=== PATIENT | male | born 1940 | race Hispanic/Latino ===

== ENCOUNTER 2017-10-16 21:28 | Emergency (ER) | payer OTHER ==
[2017-10-16] MEDS ORDERED: ATROVENT IH ONE (21:35)
[2017-10-16] MEDS ORDERED: PROVENTIL IH ONE (21:35)
--- NOTE | 2017-10-16 22:15 | XRay Report ---
FINAL REPORT PROCEDURE: XR CHEST 1V AP TECHNIQUE: Chest radiograph anteroposterior view. CPT 16346 HISTORY: Asthma COMPARISON: No prior studies are available for comparison. FINDINGS: Heart: Mild cardiomegaly is noted. Mediastinum/Vessels: Normal. Lungs/Pleural space: There is diffuse prominence of interstitial markings. Pulmonary venous congestion is noted. Pleural spaces are clear. Subsegmental atelectatic changes are noted in the left lung base.. Bony thorax: No acute osseous abnormality. Life support devices: None. IMPRESSION: Findings are most consistent with CHF. Subsegmental atelectatic changes left lung base. Any underlying infiltrates cannot be excluded..
[2017-10-16 22:30] LABS: Albumin 3.3 g/dL (3.9-5); Calcium 7.9 mg/dL (8.4-10.2)
--- NOTE | 2017-10-16 22:30 | Emergency Department Report ---
ED Shortness of Breath HPI - General Chief Complaint: Dyspnea/Respdistress Stated Complaint: DIFFICULTY IN BREATHING Time Seen by Provider: 10/16/17 21:35 Source: patient, family, EMS Mode of arrival: Stretcher Limitations: No Limitations - History of Present Illness Initial Comments: Mr. Barclay is a 77-year-old male with history of COPD CHF diabetes hypertension and coronary artery disease. He was recently evaluated by [facility]. Also has new chronic kidney disease. He declined aggressive medical measures recently. He signed DO NOT RESUSCITATE form. Declined CABG which was recommended. Patient had severe shortness breath over the last 5 days. Worse today. He denies any pain. He does not want to be on a ventilator. His did corroborate this information. Due to severe respiratory distress, placed on CPAP by EMS. Also given IV Solu- Medrol, IV magnesium, IV furosemide and albuterol nebulizer therapy Complaint: shortness of breath -: Gradual, days(s) (5) Severity: severe Improves With: nothing Known History Of: COPD, congestive heart failure Context: recent illness (recent hospitalization) Associated Symptoms: denies other symptoms - Related Data Allergies Allergy/AdvReac Type Severity Reaction Status Date / Time No Known Allergies Allergy Unverified 10/16/17 21:44 ED Review of Systems ROS: Stated complaint: DIFFICULTY IN BREATHING Other details as noted in HPI Comment: Unobtainable due to pts medical conditions (severe respiratory distress) ED Past Medical Hx - Past Medical History Previous Medical History?: Yes Hx Hypertension: Yes Hx Congestive Heart Failure: Yes Hx Diabetes: Yes Hx COPD: Yes Hx Dementia: Yes - Surgical History Past Surgical History?: No - Social History Smoking Status: Current Every Day Smoker Substance Use Type: Alcohol ED Physical Exam - General Limitations: No Limitations General appearance: alert, in distress, other (severe work of breathing only able to speak one to two word sentences) - Head Head exam: Present: atraumatic, normocephalic - Eye Eye exam: Present: normal appearance, PERRL - ENT ENT exam: Present: mucous membranes moist - Neck Neck exam: Present: normal inspection. Absent: tenderness, meningismus - Respiratory Respiratory exam: Present: respiratory distress, wheezes, accessory muscle use, decreased breath sounds, prolonged expiratory - Cardiovascular Cardiovascular Exam: Present: regular rate, normal rhythm, bradycardia, tachycardia, normal heart sounds - GI/Abdominal GI/Abdominal exam: Present: soft. Absent: distended, tenderness, guarding, rebound - Extremities Exam Extremities exam: Present: pedal edema - Neurological Exam Neurological exam: Present: alert, oriented X3 - Psychiatric Psychiatric exam: Present: normal affect, normal mood - Skin Skin exam: Present: warm, dry, intact ED Course Vital Signs 10/16/17 10/16/17 21:35 21:53 Temperature 98.5 F Pulse Rate 100 H Respiratory 20 20 Rate Blood Pressure 191/90 O2 Sat by Pulse 100 100 Oximetry ED Medical Decision Making - Lab Data Result diagrams: 10/16/17 22:01 10/16/17 22:01 - EKG Data 10/16/17 22:32 EKG obtained 2210 Sinus tachycardia rate of 100 bpm normal axis prolonged QT interval no ST elevation or signs of ischemia - Medical Decision Making Mr. Barclay is a 77-year-old male presents with acute respiratory distress requiring BiPAP. ABG did not reveal any hypercapnia or significant hypoxia. It did show mild metabolic acidosis. He has a history of congestive heart failure and chronic kidney disease no known history of COPD. His was able to give further history. His furosemide dose was as high as 80 mg twice a day. The dose was then decreased to 40 mg twice a day. Now he is only taking furosemide 20 mg once a day. has been watching his weight. She has not noticed any no weight gain. She explained that patient is highly functioning. However he does have a history of dementia. Mr. Barclay was able to get a full history. He denies any symptoms at this time. He is quite intelligent and insightful. I do suspect that he may have mild memory loss. I Explained the diagnosis of acute congestive heart failure. I offered admission to the hospital. He received IV furosemide per EMS. He does not require any oxygen. His pulse ox is 97% on room air which is normal. His respiratory rate is 16 breaths per minute. Resting heart rate 97 bpm laying at 30 almost supin. Mr. Barclay's was to tell me that his GFR is 26. His creatinine is 2.7 according to . His kidney function is at baseline. She also explained that he recently left AGAINST MEDICAL ADVICE from [facility] during most recent hospitalization. He desires to be discharged. He is stable for discharge at this time. I have asked the to increase his Lasix dosing to 40 mg twice a day until he sees his physician. agrees to take the patient home. Critical Care Time: Yes Critical care time in (mins) excluding proc time.: 45 Critical care attestation.: If time is entered above; I have spent that time in minutes in the direct care of this critically ill patient, excluding procedure time. He came to the bedside immediately. Discussed BiPAP therapy were respiratory therapist. I obtain history from . I reviewed electronic medical record. Also took history from EMS. Patient required BiPAP and noninvasive pressure ventilation immediately upon arrival. I reviewed end of life forms which were recently signed in August. ED Disposition Clinical Impression: Acute exacerbation of CHF (congestive heart failure) Disposition: TO HOME OR SELFCARE Is pt being admited?: No Does the pt Need Aspirin: No Condition: Stable Instructions: Heart Failure (ED), Pulmonary Edema (ED) Additional Instructions: Please increase your Lasix dose to 40 mg twice a day. Referrals: PRIMARY CARE, [Primary Care Provider] - 3-5 Days Time of Disposition: 00:26
[2017-10-16 22:44] LABS: Chol/HDL Ratio 7.07 %
[2017-10-16 23:02] LABS: Hematocrit 30.8 % (35.5-45.6); Hemoglobin 9.7 gm/dl (11.8-15.2); Mean Corpuscular Volume 82 fl (84-94); Red Blood Count 3.77 M/mm3 (3.65-5.03)
[2017-10-16 23:03] LABS: Basophils % (Auto) 0.3 % (0.0-1.8); Eosinophils # (Auto) 0.1 K/mm3 (0.0-0.4); Eosinophils % (Auto) 0.7 % (0.0-4.3); Lymphocytes # (Auto) 0.8 K/mm3 (1.2-5.4); Lymphocytes % (Auto) 10.5 % (13.4-35.0); Mean Corpuscular HGB Conc 31 % (32-34); Mean Corpuscular Hemoglobin 26 pg (28-32); Monocytes # (Auto) 0.3 K/mm3 (0.0-0.8); Monocytes % (Auto) 4.1 % (0.0-7.3); Platelet Count 165 K/mm3 (140-440); Red Cell Distribution Width 18.8 % (13.2-15.2)
[2017-10-17 01:34] VITALS: BP 177/81
== END 2017-10-17 01:00 | disposition home or self-care (01) ==
LOC: ED 21:28
DX: I11.0 Hypertensive heart disease with heart failure (principal); I50.9 Heart failure, unspecified; E11.9 Type 2 diabetes mellitus without complications; J44.9 Chronic obstructive pulmonary disease, unspecified; F03.90 Unspecified dementia, unspecified severity, without behavioral disturbance, psychotic disturbance, mood disturbance, and anxiety; F17.200 Nicotine dependence, unspecified, uncomplicated
CPT/HCPCS: 36415; 71045; 80053; 80061; 82803; 84484; 85025; 87040; 93005; 93010; 99291

== ENCOUNTER 2018-11-04 10:36 | Inpatient (IN) | payer OTHER, MEDICARE ==
--- NOTE | 2018-11-04 11:00 | Cat Scan Report ---
CT HEAD WITHOUT CONTRAST: HISTORY: Stroke. TECHNIQUE: Sequential 2.5mm CT images. COMPARISON: none. FINDINGS: Cerebral Parenchyma: Mild diffuse cortical volume loss and mild chronic ischemic changes in the white matter are identified. No large area of acute ischemia as a procedure done noncontrast CT. Cerebellum: Within normal limits. Brainstem: 5 mm chronic lacunar infarct in the left maida. Ventricles: Normal. Sella: Normal. Extra-axial spaces: Normal. Basal Cisterns: Normal. Intracranial Hemorrhage: None. Midline Shift: None. Calvarium: Normal. Sinuses: Mild mucosal thickening is noted in the inferior left maxillary sinus. The remaining sinuses are well-aerated. Mastoid Air Cells: Normal. Visualized Orbits: Normal. IMPRESSION: No acute intracranial process is identified. Volume loss. Chronic white matter changes. Chronic lacunar infarct in the left maida. These findings were discussed with Dr. Nieto in the emergency Department at 1053 hrs.
--- NOTE | 2018-11-04 11:06 | Emergency Department Report ---
ED Neuro Deficit HPI - General Chief Complaint: Neuro Symptoms/Deficit Stated Complaint: AMS Time Seen by Provider: 11/04/18 10:46 Source: patient, family, EMS Mode of arrival: Stretcher Limitations: Altered Mental Status - History of Present Illness Initial Comments: [facility] Date of Service: 11/04/18 Impression: Encephalopathy: no focal weakness seen on exam. He is not answering questions or following commands. Concern more for metabolic encephalopathy but possibly a s troke with aphasia - - - Not a tpa candidate due to: no focal weakness and does not want significant interventions therefore would not consider tpa without a clear stroke syndrome which he does not have Presentation is not suggestive of Large Vessel Occlusive Disease. Thrombectomy would not be recommended. He would not want an intervention per so no stat imaging. Comments: ELI: 8:30 Door time: 10:36 [employer] contacted: 10:46 [employer] at bedside:10:51 NIHSS assessment time: 10:55 Recommendations: -Metabolic work up per primaty team -ASA -Permissive htn up to 220/120 -Check Hgb A1c and lipid panel -dysphagia screen -Telemetry -Glucose control per primary team, avoid hypo- and hyperglycemia -DVT prophylaxis -PT/OT/Speech Inpatient neurology consultation Inpatient stroke evaluation as per Neurology/ Internal Medicine Discussed with ED MD Please call with questions Estrella Sarha, DO [employer] --------- CC altered mental status History of Present Illness 78 yo M with history of CKD and stroke who is presenting with altered mental status. Patient last spoke to his at 8:30 and at that time had been vomiting which isn't unsual for him. He did not take any of his medications and then seemed more altered so she brought him in. She felt like something was wrong all morning. He is comfort measures essentially and does not want interventions to keep him alive per but wouldn't want to be debilitated further. Diagnostic: CT head: no acute process Exam: NIHSS score: 14 1A: Level of Consciousness - Arouses to minor stimulation +1 1B: Ask Month and Age - 0 Questions Right +2 1C: 'Blink Eyes' & 'Squeeze Hands' - Performs 0 Tasks +2 2: Test Horizontal Extraocular Movements - Normal 0 3: Test Visual Mcpherson - No Visual Loss 0 4: Test Facial Palsy - Normal symmetry 0 5A: Test Left Arm Motor Drift - Drift, but doesn't hit bed +1 5B: Test Right Arm Motor Drift - Drift, but doesn't hit bed +1 6A: Test Left Leg Motor Drift - Drift, but doesn't hit bed +1 6B: Test Right Leg Motor Drift -Drift, but doesn't hit bed +1 7: Test Limb Ataxia - No Ataxia 0 8: Test Sensation - Normal; No sensory loss 0 9: Test Language/Aphasia - venetie/Global Aphasia: No Usable Speech/Auditory Comprehensionute/Global Aphasia: No Usable Speech/Auditory Comprehension +3 10: Test Dysarthria - Mute/Anarthric +2 11: Test Extinction/Inattention - No abnormality 0 Medical Decision Making: - Extensive number of diagnosis or management options are considered above. - Extensive amount of complex data reviewed. - High risk of complication and/or morbidity or mortality are associated with differential diagnostic considerations above. - There may be Uncertain outcome and increased probability of prolonged functional impairment or high probability of severe prolonged functional impairment associated with some of these differential diagnosis. Medical Data Reviewed: 1.Data reviewed include clinical labs, radiology, Medical Tests; 2.Tests results discussed w/performing or interpreting physician; 3.Obtaining/reviewing old medical records; 4.Obtaining case history from another source; 5.Independent review of image, tracing or specimen. Patient was informed the Neurology Consult would happen via TeleHealth consult by way of interactive audio and video telecommunications and consented to receiving care in this manner. - Related Data Allergies/Adverse Reactions: Allergies Allergy/AdvReac Type Severity Reaction Status Date / Time No Known Allergies Allergy Unverified 10/16/17 21:44 ED Review of Systems ROS: Stated complaint: AMS Other details as noted in HPI ED Past Medical Hx - Past Medical History Previous Medical History?: Yes Hx Hypertension: Yes Hx Congestive Heart Failure: Yes Hx Diabetes: Yes Hx Renal Disease: Yes Hx Psychiatric Treatment: Yes Hx COPD: Yes Hx Dementia: Yes Additional medical history: dementia. general weakness. depression. liver function. mood disorder - Social History Smoking Status: Current Every Day Smoker Substance Use Type: Alcohol ED Neuro Physical Exam - General Limitations: Altered Mental Status Suspected Stroke: No - Lab Data Lab Results 11/04/18 Range/Units 10:51 POC Glucose 369 H (70-105) Critical care attestation.: If time is entered above; I have spent that time in minutes in the direct care of this critically ill patient, excluding procedure time. ED Disposition Clinical Impression: Encephalopathy acute Disposition: DC-09 OP ADMIT IP TO THIS HOSP Is pt being admited?: Yes Condition: Stable Referrals: PRIMARY CARE, [Primary Care Provider] - 3-5 Days
--- NOTE | 2018-11-04 11:07 | Emergency Department Report ---
HPI - General Time Seen by Provider: 11/04/18 10:46 - HPI HPI: 78-year-old -[place] male presents to the emergency department, with his , via EMS with complaint of some altered mental status that started around 845 this morning. The patient has a past medical history of CVA, diabetes, TIA, COPD, CHF, hypertension and coronary artery disease. He has been seen here in the past and has refused certain workups including being sent for bypass surgery. He has signed a DO NOT RESUSCITATE in the past and has current paperwork that reiterates this. The says that she noticed around 945 that he was having difficulty speaking. Also she usually is able to assist him in walking around and bleeding is ADLs but at this point he had increased weakness and she was unable to do so. EMS said that he was able to stand and bear weight with some assistance. He did not receive anything for his symptoms prior to arrival. Even though there are no complaints of any obvious lateralizing or focal deficits other than the decreased speech or difficulty with speech, there is a clear time that the patient's says was a last known well time, and therefore we initiated a code stroke. ED Past Medical Hx - Past Medical History Previous Medical History?: Yes Hx Hypertension: Yes Hx Congestive Heart Failure: Yes Hx Diabetes: Yes Hx Renal Disease: Yes Hx Psychiatric Treatment: Yes Hx COPD: Yes Hx Dementia: Yes Additional medical history: dementia. general weakness. depression. liver function. mood disorder - Social History Smoking Status: Current Every Day Smoker Substance Use Type: Alcohol - Medications Home Medications: Home Medications Medication Instructions Recorded Confirmed Last Taken Type Divalproex Dr [Rafael BROUSSARD] 250 mg PO BID 11/04/18 11/04/18 Unknown History Insulin Glargine,Hum.rec.anlog 20 unit SQ QAM 11/04/18 11/04/18 Unknown History [Lantus Solostar] Ondansetron [Zofran Odt] 4 mg PO Q8HR 11/04/18 11/04/18 Unknown History Sertraline [Zoloft] 100 mg PO QDAY 11/04/18 11/04/18 Unknown History ED Review of Systems ROS: Stated complaint: AMS Other details as noted in HPI Comment: Unobtainable due to pts medical conditions Physical Exam - Physical Exam Physical Exam: GENERAL: Patient is ill-appearing. HENT: Normocephalic. Atraumatic. Patient has moist mucous membranes. EYES: Extraocular motions are intact. Pupils equal reactive to light bilaterally. NECK: Supple. Trachea is midline. CHEST/LUNGS: Clear to auscultation. There is no respiratory distress noted. HEART/CARDIOVASCULAR: Regular. There is no tachycardia. There is no murmur. ABDOMEN: Abdomen is soft, nontender. Patient has normal bowel sounds. There is no abdominal distention. SKIN: Skin is warm and dry. NEURO: The patient is awake but is nonverbal. He will follow some commands but often needs multiple prompts. Withdraws from painful stimuli. MUSCULOSKELETAL: There is no tenderness or deformity. There is no limitation range of motion. There is no evidence of acute injury. ED Course - Consultations Consultation #1: 11/04/18 11:23 As soon as the decision was made to call a code stroke, the telemedicine neurologist was contacted, Dr. Sanford. She evaluated the patient and thinks it is more consistent with some metabolic encephalopathy and does not recommend TPA at this time. Consultation #2: Just prior to the patient being transferred to the telemetry floor, I found out the patient has [employer]. I spoke with Dr. Manuel who has agreed to allow the patient to be [facility]. 11/04/18 19:56 ED Medical Decision Making - Lab Data Result diagrams: 11/04/18 11:04 11/04/18 11:04 - EKG Data -: EKG Interpreted by Me EKG shows normal: sinus rhythm (PVCs), axis, intervals, QRS complexes, ST-T waves Rate: normal - EKG Data When compared to previous EKG there are: previous EKG unavailable Interpretation: normal EKG (with PVCs) - Radiology Data Radiology results: report reviewed CT HEAD WITHOUT CONTRAST: HISTORY: Stroke. TECHNIQUE: Sequential 2.5mm CT images. COMPARISON: none. FINDINGS: Cerebral Parenchyma: Mild diffuse cortical volume loss and mild chronic ischemic changes in the white matter are identified. No large area of acute ischemia as a procedure done noncontrast CT. Cerebellum: Within normal limits. Brainstem: 5 mm chronic lacunar infarct in the left maida. Ventricles: Normal. Sella: Normal. Extra-axial spaces: Normal. Basal Cisterns: Normal. Intracranial Hemorrhage: None. Midline Shift: None. Calvarium: Normal. Sinuses: Mild mucosal thickening is noted in the inferior left maxillary sinus. The remaining sinuses are well-aerated. Mastoid Air Cells: Normal. Visualized Orbits: Normal. IMPRESSION: No acute intracranial process is identified. Volume loss. Chronic white matter changes. Chronic lacunar infarct in the left maida. These findings were discussed with Dr. Nieto in the emergency Department at 1053 hrs. Transcribed By: TTR Dictated By: DERECK ENGLISH JR, MD Electronically Authenticated By: DERECK ENGLISH JR, MD Signed Date/Time: 11/04/18 1055 - Medical Decision Making This patient presents to the emergency department for evaluation of altered mental status. As it was an acute change within a TPA window, a code stroke was called. The patient was seen by the telemedicine neurologist who agrees that the patient does not appear to be a TPA candidate as it is more likely to be secondary to a metabolic encephalopathy but there is still the potential for CVA with acute aphasia. However the patient has made his wishes clear previously to his that he does not want any significant interventions and that he is a DO NOT RESUSCITATE. Patient's labs show hyperglycemia with a blood sugar of about 400. While he has a mild elevation in his anion gap, there is no venous acidosis and he appears lower suspicion for being in diabetic ketoacidosis. He also has some occasional chronic renal insufficiency/failure and mild hyperkalemia with potassium of 5.3. The patient presents with extremely elevated blood pressure. He was given some IV insulin and IV antihypertensive medications. The blood sugar has started to come down and the blood pressure has greatly improved. The patient will be admitted to the hospital for further evaluation and treatment and was accepted for admission by the hospitalist, Dr. Sheikh. - Differential Diagnosis CVA, TIA, metabolic encephalopathy, DKA, HHNK Critical Care Time: Yes Critical care time in (mins) excluding proc time.: 35 Critical care attestation.: If time is entered above; I have spent that time in minutes in the direct care of this critically ill patient, excluding procedure time. Critical care time was spent on this patient and during his initial evaluation, multiple re- evaluations, ordering an interpretation of labs and imaging, discussion with the telemedicine neurologist, multiple discussions with the patient's . Critical Care Time: 35 minutes ED Disposition Clinical Impression: Encephalopathy acute, Hypertensive urgency, Uncontrolled diabetes mellitus, Acute on chronic renal failure Disposition: DC-09 OP ADMIT IP TO THIS HOSP Is pt being admited?: Yes Condition: Serious - Assessment Assessment Interval: Baseline - Level of Consciousness 1a. Level of Consciousness: alert/keenly responsive - LOC Questions 1b. LOC Questions: aphasic - LOC Command 1c. LOC Commands: performs tasks correctly - Best Gaze 2. Best Gaze: normal - Visual 3. Visual: no visual loss - Facial Palsy 4. Facial Palsy: normal symmetrical movement - Motor Arm 5a. Motor Arm Left: no drift 5b. Motor Arm Right: no drift - Motor Leg 6a. Motor Leg Left: no drift 6b. Motor Leg Right: no drift - Limb Ataxia 7. Limb Ataxia: absent - Sensory 8. Sensory: normal - Best Language 9. Best Language: mute/global aphasia - Dysarthria 10. Dysarthria: mute/anarrthric - Extinction and Inattention 11. Extinction/Inattention: no abnormality - Scoring Total Score: 7 Stroke Severity: Moderate Stroke
[2018-11-04 11:23] LABS: Basophils % (Auto) 0.3 % (0.0-1.8); Hematocrit 35.1 % (35.5-45.6); Hemoglobin 11.7 gm/dl (11.8-15.2); Lymphocytes # (Auto) 0.5 K/mm3 (1.2-5.4); Lymphocytes % (Auto) 8.5 % (13.4-35.0); Mean Corpuscular HGB Conc 33 % (32-34); Mean Corpuscular Volume 87 fl (84-94); Monocytes # (Auto) 0.3 K/mm3 (0.0-0.8); Monocytes % (Auto) 4.3 % (0.0-7.3); Platelet Count 151 K/mm3 (140-440); Red Blood Count 4.06 M/mm3 (3.65-5.03); Red Cell Distribution Width 16.5 % (13.2-15.2)
[2018-11-04 11:33] LABS: INR 1.1 (0.87-1.13)
[2018-11-04 11:34] LABS: Partial Thromboplastin Time 25.9 Sec. (24.2-36.6)
[2018-11-04 11:41] LABS: Calcium 9.1 mg/dL (8.4-10.2)
[2018-11-04 11:45] LABS: Alanine Aminotransferase 10 units/L (7-56)
[2018-11-04 11:48] LABS: Bilirubin,Direct < 0.2 mg/dL (0-0.2)
[2018-11-04] MEDS ORDERED: NORMODYNE IV ONE (11:59)
[2018-11-04] MEDS ORDERED: HumuLIN R IV ONE (11:59)
[2018-11-04 12:01] LABS: Chol/HDL Ratio 7.75 %
--- NOTE | 2018-11-04 12:44 | History and Physical Report ---
History of Present Illness Chief complaint: He is weak and cant talk History of present illness: 78 YO Male with HTN, CHF, CVA, DM, COPD, Dementia, Debility, Nicotine Dependence presents to ED for evaluation. Pt is confused and unable to provide detailed history. Pt history provided by his who is at bedside during exam and interview. As per , the patient was in his usual state of health around bedtime around 2030hrs. Upon waking from sleep around 0945 hrs and was found to have difficulty speaking, as well as generalized weakness and unable to stand independently. EMS notified and upon arrival the patient was found to be in distress. Pt transported to [facility]. Pt seen and evaluated in ED and a code stroke was called. Teleneurology consulted and the patient was deemed not to be a candidate for TPA. Pt admitted to telemetry and initiated on CVA protocol. Neurology consulted in ED. No prior admission for review. No medication listed for reconciliation at time of admission. Past History Past Medical History: COPD, diabetes, heart failure, hypertension, stroke, other (Dementia, Nicotine Dependence) Past Surgical History: No surgical history, Other (reviewed) Social history: , lives with family, smoking Family history: hypertension Medications and Allergies Allergies Allergy/AdvReac Type Severity Reaction Status Date / Time No Known Allergies Allergy Unverified 10/16/17 21:44 Home Medications Medication Instructions Recorded Confirmed Last Taken Type Divalproex Dr [Rafael BROUSSARD] 250 mg PO BID 11/04/18 11/04/18 Unknown History Insulin Glargine,Hum.rec.anlog 20 unit SQ QAM 11/04/18 11/04/18 Unknown History [Lantus Solostar] Ondansetron [Zofran Odt] 4 mg PO Q8HR 11/04/18 11/04/18 Unknown History Sertraline [Zoloft] 100 mg PO QDAY 11/04/18 11/04/18 Unknown History Review of Systems ROS unobtainable: due to mental status Exam - Constitutional General appearance: Present: mild distress - EENT Eyes: Present: PERRL ENT: hearing intact, clear oral mucosa - Neck Neck: Present: supple, normal ROM - Respiratory Respiratory effort: normal Respiratory: bilateral: CTA - Cardiovascular Heart Sounds: Present: S1 & S2. Absent: rub, click - Extremities Extremities: pulses symmetrical, No edema Peripheral Pulses: within normal limits - Abdominal General gastrointestinal: Present: soft, non-tender, non-distended, normal bowel sounds Male genitourinary: Present: normal - Integumentary Integumentary: Present: clear, dry, clammy - Musculoskeletal Musculoskeletal: generalized weakness - Psychiatric Psychiatric: no appropriate mood/affect, no intact judgment & insight, no memory intact - Neurologic Neurologic: CNII-XII intact, moves all extremities, no gait normal Results - Labs CBC & Chem 7: 11/04/18 11:04 11/04/18 11:04 Labs: Abnormal lab results 11/04/18 11/04/18 11/04/18 Range/Units 10:51 11:04 11:04 Hgb 11.7 L (11.8-15.2) gm/dl Hct 35.1 L (35.5-45.6) % RDW 16.5 H (13.2-15.2) % Lymph % (Auto) 8.5 L (13.4-35.0) % Lymph # 0.5 L (1.2-5.4) K/mm3 Seg Neutrophils % 86.9 H (40.0-70.0) % Sodium 135 L (137-145) mmol/L Potassium 5.3 H (3.6-5.0) mmol/L Chloride 97.5 L (98-107) mmol/L Carbon Dioxide 20 L (22-30) mmol/L BUN 62 H (9-20) mg/dL Creatinine 3.1 H (0.8-1.5) mg/dL Glucose 404 H (75-100) mg/dL POC Glucose 369 H (70-105) Troponin T 0.125 H* (0.00-0.029) ng/mL Triglycerides 314 H (2-149) mg/dL Cholesterol 225 H (50-199) mg/dL LDL Cholesterol Direct 148 H (50-130) mg/dL HDL Cholesterol 29 L (40-59) mg/dL Assessment and Plan - Patient Problems (1) CVA (cerebral vascular accident) Current Visit: Yes Status: Acute Qualifiers: Precerebral and cerebral artery: middle cerebral artery Laterality of affected vessel: left Plan to address problem: CVA Protocol: Admit to telemetry, CT Brain, MRI Brain, MRA Brain, Teleneurology consulted, Echo, Carotid doppler, Antiplatelet therapy, lipid panel, statin therapy, Neurology consulted, PT/OT/Speech therapy (2) Nicotine dependence Current Visit: Yes Status: Acute Qualifiers: Nicotine product type: cigarettes Plan to address problem: Smoking cessation counseling, supportive care. (3) COPD (chronic obstructive pulmonary disease) Current Visit: Yes Status: Acute Qualifiers: Chronic bronchitis type: mixed simple and mucopurulent Plan to address problem: Supplemental oxygen, nebulizer therapy, NIPPV as clinically indicated, (4) Diabetes Current Visit: Yes Status: Acute Plan to address problem: ADA diet, insulin sliding scale, accu check (5) HTN (hypertension) Current Visit: Yes Status: Acute Qualifiers: Hypertension type: essential hypertension Qualified Code(s): I10 - Essential (primary) hypertension Plan to address problem: Permissive hypertension overnight, monitor BP q shift, (6) Encephalopathy acute Current Visit: Yes Status: Acute Plan to address problem: CT Head, neuro checks, supportive care. (7) Debility Current Visit: Yes Status: Acute Plan to address problem: PT consulted, CAse management consulted for D/C Planning/SNF Placement (8) ARF (acute renal failure) with tubular necrosis Current Visit: Yes Status: Acute Plan to address problem: IVF resuscitation therapy, nephrology consulted, urine electrolytes, renal ultrasound (9) DVT prophylaxis Current Visit: Yes Status: Acute Plan to address problem: SCD to BLE while in bed, prophylactic heparin
[2018-11-04 12:53] LABS: Bilirubin,Urine NEG (Negative); Blood,Urine SM (Negative); Color,Urine Straw (Yellow); RBC,Urine < 1.0 /HPF (0.0-6.0); Urobilinogen,Urine < 2.0 mg/dL (<2.0); WBC,Urine < 1.0 /HPF (0.0-6.0)
[2018-11-04] MEDS ORDERED: PHENERGAN PR PRN (15:13)
[2018-11-04] MEDS ORDERED: ZOFRAN IV PRN (15:13)
[2018-11-04] MEDS ORDERED: TYLENOL PO PRN (15:13)
[2018-11-04] MEDS ORDERED: DULCOLAX PR PRN (15:13)
[2018-11-04] MEDS ORDERED: PROVENTIL IH PRN (15:13)
[2018-11-04] MEDS ORDERED: MILK OF MAGNESIA PO PRN (15:13)
[2018-11-04] MEDS ORDERED: REGLAN PO PRN (15:13)
--- NOTE | 2018-11-04 17:08 | Vascular Lab Report ---
PROCEDURE: VL CAROTID DUPLEX BILAT TECHNIQUE: Duplex Doppler ultrasound examination of the cervical arteries bilaterally. Note: Measurement of carotid stenosis is based on flow velocity values that correlate with the [place] Symptomatic Carotid Endarterectomy Trial (NASCET) based stenosis criteria using the internal carotid artery diameter as the denominator for stenosis calculation. HISTORY: stroke . Acute encephalopathy. Altered mental status COMPARISONS: None FINDINGS: Intimal thickening is noted bilaterally throughout the carotid artery system but no significant plaqu e or calcification is demonstrated. Peak systolic CCA and ICA velocities are within normal limits bilaterally corresponding to estimated diameter stenosis of 0 to 49 %. ICA/CCA peak systolic ratios are within normal limits. Right ratio: 1.24 Left ratio: 0.77 Flow is antegrade in both vertebral arteries. No evidence of aneurysm or occlusion. IMPRESSION: Bilateral carotid artery minimal atherosclerotic change. No hemodynamically significant stenosis (<50% diameter) based on ratios, velocities, and color Dopple r images. This document is electronically signed by Walker Vides MD., Nov 04 2018 06:06:07 PM ET
--- NOTE | 2018-11-04 17:41 | Consultation ---
Medications and Allergies Allergies Allergy/AdvReac Type Severity Reaction Status Date / Time No Known Allergies Allergy Unverified 10/16/17 21:44 Home Medications Medication Instructions Recorded Confirmed Last Taken Type Divalproex Dr [Rafael DR] 250 mg PO BID 11/04/18 11/04/18 Unknown History Insulin Glargine,Hum.rec.anlog 20 unit SQ QAM 11/04/18 11/04/18 Unknown History [Lantus Solostar] Ondansetron [Zofran Odt] 4 mg PO Q8HR 11/04/18 11/04/18 Unknown History Sertraline [Zoloft] 100 mg PO QDAY 11/04/18 11/04/18 Unknown History Active Meds: Active Medications Acetaminophen (Tylenol) 650 mg PO Q4H PRN PRN Reason: Pain, Mild (1-3) Albuterol (Proventil) 2.5 mg IH Q3HRT PRN PRN Reason: Shortness Of Breath Aspirin (Aspirin) 325 mg PO QDAY [place] Bisacodyl (Dulcolax) 10 mg [place] QDAY PRN PRN Reason: Constipation Divalproex Sodium (Depakote Dr) 250 mg PO BID [place] Insulin Glargine (Lantus) 20 units SUB-Q QHS [place] Magnesium Hydroxide (Milk Of Magnesia) 30 ml PO Q4H PRN PRN Reason: Constipation Metoclopramide HCl (Reglan) 10 mg PO Q6H PRN PRN Reason: Nausea And Vomiting Ondansetron HCl (Zofran) 4 mg IV Q8H PRN PRN Reason: Nausea And Vomiting Ondansetron HCl (Zofran Odt) 4 mg PO Q8HR PRE[place] Promethazine HCl (Phenergan) 25 mg [place] Q6H PRN PRN Reason: Nausea And Vomiting Sertraline HCl (Zoloft) 100 mg PO QDAY [place] Sodium Chloride (Sodium Chloride Flush Syringe 10 Ml) 10 ml IV PRN PRN PRN Reason: LINE FLUSH Physical Examination - Vital Signs Vital Signs: Vital Signs Resp 22 11/04/18 11:45 Results - Laboratory Findings CBC and BMP: 11/04/18 11:04 11/04/18 11:04 Abnormal Lab Findings: Abnormal Labs 11/04/18 11/04/18 11/04/18 10:51 11:04 11:04 Hgb 11.7 L Hct 35.1 L RDW 16.5 H Lymph % (Auto) 8.5 L Lymph # 0.5 L Seg Neutrophils % 86.9 H Sodium 135 L Potassium 5.3 H Chloride 97.5 L Carbon Dioxide 20 L BUN 62 H Creatinine 3.1 H Glucose 404 H POC Glucose 369 H Troponin T 0.125 H* Triglycerides 314 H Cholesterol 225 H LDL Cholesterol Direct 148 H HDL Cholesterol 29 L 11/04/18 13:11 Hgb Hct RDW Lymph % (Auto) Lymph # Seg Neutrophils % Sodium Potassium Chloride Carbon Dioxide BUN Creatinine Glucose POC Glucose 350 H Troponin T Triglycerides Cholesterol LDL Cholesterol Direct HDL Cholesterol
--- NOTE | 2018-11-04 18:28 | Consultation ---
Medications and Allergies Allergies Allergy/AdvReac Type Severity Reaction Status Date / Time No Known Allergies Allergy Unverified 10/16/17 21:44 Home Medications Medication Instructions Recorded Confirmed Last Taken Type Divalproex Dr [Rafael DR] 250 mg PO BID 11/04/18 11/04/18 Unknown History Insulin Glargine,Hum.rec.anlog 20 unit SQ QAM 11/04/18 11/04/18 Unknown History [Lantus Solostar] Ondansetron [Zofran Odt] 4 mg PO Q8HR 11/04/18 11/04/18 Unknown History Sertraline [Zoloft] 100 mg PO QDAY 11/04/18 11/04/18 Unknown History Active Meds: Active Medications Acetaminophen (Tylenol) 650 mg PO Q4H PRN PRN Reason: Pain, Mild (1-3) Albuterol (Proventil) 2.5 mg IH Q3HRT PRN PRN Reason: Shortness Of Breath Aspirin (Aspirin) 325 mg PO QDAY [place] Bisacodyl (Dulcolax) 10 mg [place] QDAY PRN PRN Reason: Constipation Divalproex Sodium (Depakote Dr) 250 mg PO BID [place] Insulin Glargine (Lantus) 20 units SUB-Q QHS [place] Magnesium Hydroxide (Milk Of Magnesia) 30 ml PO Q4H PRN PRN Reason: Constipation Metoclopramide HCl (Reglan) 10 mg PO Q6H PRN PRN Reason: Nausea And Vomiting Ondansetron HCl (Zofran) 4 mg IV Q8H PRN PRN Reason: Nausea And Vomiting Ondansetron HCl (Zofran Odt) 4 mg PO Q8HR [place] Promethazine HCl (Phenergan) 25 mg DC Q6H PRN PRN Reason: Nausea And Vomiting Sertraline HCl (Zoloft) 100 mg PO QDAY [place] Sodium Chloride (Sodium Chloride Flush Syringe 10 Ml) 10 ml IV PRN PRN PRN Reason: LINE FLUSH Physical Examination - Vital Signs Vital Signs: Vital Signs Resp 22 11/04/18 11:45 Results - Laboratory Findings CBC and BMP: 11/04/18 11:04 11/04/18 11:04 Abnormal Lab Findings: Abnormal Labs 11/04/18 11/04/18 11/04/18 10:51 11:04 11:04 Hgb 11.7 L Hct 35.1 L RDW 16.5 H Lymph % (Auto) 8.5 L Lymph # 0.5 L Seg Neutrophils % 86.9 H Sodium 135 L Potassium 5.3 H Chloride 97.5 L Carbon Dioxide 20 L BUN 62 H Creatinine 3.1 H Glucose 404 H POC Glucose 369 H Troponin T 0.125 H* Triglycerides 314 H Cholesterol 225 H LDL Cholesterol Direct 148 H HDL Cholesterol 29 L 11/04/18 11/04/18 13:11 17:58 Hgb Hct RDW Lymph % (Auto) Lymph # Seg Neutrophils % Sodium Potassium Chloride Carbon Dioxide BUN Creatinine Glucose POC Glucose 350 H 190 H Troponin T Triglycerides Cholesterol LDL Cholesterol Direct HDL Cholesterol Assessment and Plan Mr. Schaefer is a 78-year-old gentleman with history of stroke in the past, diabetes, TIA, COPD, CHF, hypertension and coronary artery disease who also has advanced renal disease for which dialysis was recommended in the past which he refused. Patient was found confused sitting on the bed and urinated on himself this morning, it was noticed by the . states that patient urinated on himself 3 times this morning in a period of 2 hours and when he urinated on himself for the third time he was found confused and he would look to her but did not make eye contact and look was vacant.. He did not answer questions,and that scared the and she called the ambulance..After he came to the emergency department he had some abnormal lab in that his potassium was elevated, creatinine 3.1 and BUN was 62. Patient did not have any past history of seizures. Physical examination. Patient is drowsy but answers questions and his answers are appropriate. He knows the president, he knows who he is and where he is, he identified me is a doctor and he could not recognize his , he stated that she was his nurse. Heart. Normal rate and rhythm. Carotid. Both palpable, no bruit. Cranial nerves. All cranial nerves are within normal limits.Pupils are reactive to light and accommodation,no facial asymmetry. Motor. Normal strength in all 4 extremities, there is no asymmetry of strength. Reflexes: There were generalized hyporeflexia and plantar responses are downgoing. Sensation and coordination are grossly within normal limits. Impression : patient most likely had an episode of simple partial seizure, he has seizure risk factor as he had stroke in the past. Patient's confusion could be from metabolic encephalopathy as well as from post ictal state. Recommendation. Patient should be started on Keppra 500 mg by mouth twice a day. #2 Patient BUN of 60 to be addressed with adequate fluid and patient should be counseled again about the benefit of dialysis.
--- NOTE | 2018-11-04 18:29 | Consultation ---
Medications and Allergies Allergies Allergy/AdvReac Type Severity Reaction Status Date / Time No Known Allergies Allergy Unverified 10/16/17 21:44 Home Medications Medication Instructions Recorded Confirmed Last Taken Type Divalproex Dr [ChantellTE DR] 250 mg PO BID 11/04/18 11/04/18 Unknown History Insulin Glargine,Hum.rec.anlog 20 unit SQ QAM 11/04/18 11/04/18 Unknown History [Lantus Solostar] Ondansetron [Zofran Odt] 4 mg PO Q8HR 11/04/18 11/04/18 Unknown History Sertraline [Zoloft] 100 mg PO QDAY 11/04/18 11/04/18 Unknown History Active Meds: Active Medications Acetaminophen (Tylenol) 650 mg PO Q4H PRN PRN Reason: Pain, Mild (1-3) Albuterol (Proventil) 2.5 mg IH Q3HRT PRN PRN Reason: Shortness Of Breath Aspirin (Aspirin) 325 mg PO QDAY [place] Bisacodyl (Dulcolax) 10 mg [place] QDAY PRN PRN Reason: Constipation Divalproex Sodium (Depakote Dr) 250 mg PO BID [place] Insulin Glargine (Lantus) 20 units SUB-Q QHS [place] Magnesium Hydroxide (Milk Of Magnesia) 30 ml PO Q4H PRN PRN Reason: Constipation Metoclopramide HCl (Reglan) 10 mg PO Q6H PRN PRN Reason: Nausea And Vomiting Ondansetron HCl (Zofran) 4 mg IV Q8H PRN PRN Reason: Nausea And Vomiting Ondansetron HCl (Zofran Odt) 4 mg PO Q8HR [place] Promethazine HCl (Phenergan) 25 mg [place] Q6H PRN PRN Reason: Nausea And Vomiting Sertraline HCl (Zoloft) 100 mg PO QDAY [place] Sodium Chloride (Sodium Chloride Flush Syringe 10 Ml) 10 ml IV PRN PRN PRN Reason: LINE FLUSH Physical Examination - Vital Signs Vital Signs: Vital Signs Resp 22 11/04/18 11:45 Results - Laboratory Findings CBC and BMP: 11/07/18 04:18 11/07/18 04:18 Abnormal Lab Findings: Abnormal Labs 11/04/18 11/04/18 11/04/18 10:51 11:04 11:04 Hgb 11.7 L Hct 35.1 L RDW 16.5 H Lymph % (Auto) 8.5 L Lymph # 0.5 L Seg Neutrophils % 86.9 H Sodium 135 L Potassium 5.3 H Chloride 97.5 L Carbon Dioxide 20 L BUN 62 H Creatinine 3.1 H Glucose 404 H POC Glucose 369 H Troponin T 0.125 H* Triglycerides 314 H Cholesterol 225 H LDL Cholesterol Direct 148 H HDL Cholesterol 29 L 11/04/18 11/04/18 13:11 17:58 Hgb Hct RDW Lymph % (Auto) Lymph # Seg Neutrophils % Sodium Potassium Chloride Carbon Dioxide BUN Creatinine Glucose POC Glucose 350 H 190 H Troponin T Triglycerides Cholesterol LDL Cholesterol Direct HDL Cholesterol
--- NOTE | 2018-11-04 18:51 | Consultation ---
Medications and Allergies Allergies Allergy/AdvReac Type Severity Reaction Status Date / Time No Known Allergies Allergy Unverified 10/16/17 21:44 Home Medications Medication Instructions Recorded Confirmed Last Taken Type Divalproex Dr [Rafael DR] 250 mg PO BID 11/04/18 11/04/18 Unknown History Insulin Glargine,Hum.rec.anlog 20 unit SQ QAM 11/04/18 11/04/18 Unknown History [Lantus Solostar] Ondansetron [Zofran Odt] 4 mg PO Q8HR 11/04/18 11/04/18 Unknown History Sertraline [Zoloft] 100 mg PO QDAY 11/04/18 11/04/18 Unknown History Active Meds: Active Medications Acetaminophen (Tylenol) 650 mg PO Q4H PRN PRN Reason: Pain, Mild (1-3) Albuterol (Proventil) 2.5 mg IH Q3HRT PRN PRN Reason: Shortness Of Breath Aspirin (Aspirin) 325 mg PO QDAY [place] Bisacodyl (Dulcolax) 10 mg [place] QDAY PRN PRN Reason: Constipation Divalproex Sodium (Depakote Dr) 250 mg PO BID [place] Insulin Glargine (Lantus) 20 units SUB-Q QHS [place] Magnesium Hydroxide (Milk Of Magnesia) 30 ml PO Q4H PRN PRN Reason: Constipation Metoclopramide HCl (Reglan) 10 mg PO Q6H PRN PRN Reason: Nausea And Vomiting Ondansetron HCl (Zofran) 4 mg IV Q8H PRN PRN Reason: Nausea And Vomiting Ondansetron HCl (Zofran Odt) 4 mg PO Q8HR [place] Promethazine HCl (Phenergan) 25 mg [place] Q6H PRN PRN Reason: Nausea And Vomiting Sertraline HCl (Zoloft) 100 mg PO QDAY PRESTON Sodium Chloride (Sodium Chloride Flush Syringe 10 Ml) 10 ml IV PRN PRN PRN Reason: LINE FLUSH Physical Examination - Vital Signs Vital Signs: Vital Signs Resp 22 11/04/18 11:45 Results - Laboratory Findings CBC and BMP: 11/04/18 11:04 11/04/18 11:04 Abnormal Lab Findings: Abnormal Labs 11/04/18 11/04/18 11/04/18 10:51 11:04 11:04 Hgb 11.7 L Hct 35.1 L RDW 16.5 H Lymph % (Auto) 8.5 L Lymph # 0.5 L Seg Neutrophils % 86.9 H Sodium 135 L Potassium 5.3 H Chloride 97.5 L Carbon Dioxide 20 L BUN 62 H Creatinine 3.1 H Glucose 404 H POC Glucose 369 H Troponin T 0.125 H* Triglycerides 314 H Cholesterol 225 H LDL Cholesterol Direct 148 H HDL Cholesterol 29 L 11/04/18 11/04/18 13:11 17:58 Hgb Hct RDW Lymph % (Auto) Lymph # Seg Neutrophils % Sodium Potassium Chloride Carbon Dioxide BUN Creatinine Glucose POC Glucose 350 H 190 H Troponin T Triglycerides Cholesterol LDL Cholesterol Direct HDL Cholesterol
[2018-11-04] MEDS: LANTUS SUB-Q SCH (22:18)
[2018-11-04] MEDS: HEPARIN SUB-Q SCH (22:18)
[2018-11-04] MEDS: ZOFRAN ODT PO SCH (22:20)
[2018-11-05] MEDS: ZOFRAN ODT PO SCH ×3 (07:07→22:30)
[2018-11-05] MEDS: SODIUM CHLORIDE FLUSH SYRINGE 10 ML IV PRN (09:25)
[2018-11-05] MEDS: HEPARIN SUB-Q SCH (09:26)
[2018-11-05] MEDS: ZOLOFT PO SCH (09:26)
[2018-11-05] MEDS: ASPIRIN PO SCH (09:26)
--- NOTE | 2018-11-05 09:40 | Progress Note ---
Assessment and Plan 78 YO Male with HTN, CHF, CVA, DM, COPD, Dementia, Debility, Nicotine Dependence presents to ED for evaluation. Pt is confused and unable to provide detailed history. Pt history provided by his who is at bedside during exam and interview. As per , the patient was in his usual state of health around bedtime around 2030hrs. Upon waking from sleep around 0945 hrs, 11/04/18, and was found to have difficulty speaking, as well as generalized weakness and unable to stand independently. EMS notified and upon arrival the patient was found to be in distress. Pt transported to [facility]. Pt seen and evaluated in ED and a code stroke was called. Teleneurology consulted and the patient was deemed not to be a candidate for TPA. Pt admitted to telemetry and initiated on CVA protocol. Neurology consulted in ED. No prior admission for review. CT scan of the brain was unremarkable - CVA (cerebral vascular accident) CVA Protocol: CT Brain - nl F/u with MRI Brain, MRA Brain, Teleneurology consulted, Echo, Carotid doppler, Antiplatelet therapy, lipid panel, statin therapy, Neurology consulted, PT/OT/Speech therapy - Encephalopathy acute CT Head, neuro checks, supportive care. - ARF (acute renal failure) with tubular necrosis Continue IVF resuscitation therapy, nephrology consulted, urine electrolytes, Follow-up with renal ultrasound - Elevated troponin likely secondary to ARF. Pt has no chest pain Will trend Continue with ASA. Add metoprolol, Atorvastatin and lisinopril, NTG Discussed with and consulted cardiology - COPD (chronic obstructive pulmonary disease) Chronic bronchitis type: mixed simple and mucopurulent Supplemental oxygen, nebulizer therapy, NIPPV as clinically indicated, - Diabetes ADA diet, insulin sliding scale, accu check - HTN (hypertension) Permissive hypertension overnight, monitor BP q shift, - Debility Current Visit: Yes Status: Acute Plan to address problem: PT consulted, Case management consulted for D/C Planning/SNF Placement - Nicotine dependence Tobacco cessation counseling was done - DVT prophylaxis SCD to BLE while in bed, prophylactic heparin - Discussed with patient's regarding careplan. She expressed understanding - Patient is full code Time spent: 30 minutes Subjective Date of service: 11/05/18 Principal diagnosis: metabolic encephalopathy, hypertension, acute Renal faulure Interval history: Potassium and examined. Patient's by the bedside. Still confused. Attempting to eat but taking food from the table instead of the plate. Objective - Exam Narrative Exam: Constitutional: Well-nourished well-developed. Confused. In no distress Head: Normocephalic atraumatic Eyes: Pupils are equal round and reactive to light Nose: No enlarged turbinates, no septal deviation. Mouth: Moist mucous membranes. Neck: Supple no thyromegaly. No bruit. No JVD Heart: Regular rate and rhythm, S1-S2 normal. No rubs murmurs or gallop Lungs: Clear to auscultation bilaterally. no rales or rhonchi Abdomen: Soft, nontender. Bowel sound are present. Extremities: No edema, no cyanosis, no clubbing. Neuro: Alert oriented Oriented x1. Confused Skin: No rashes or hyperpigmented spots Musculoskeletal system: No joint pain or swelling Hematological: No petechia or subcutanous hemorrhages. Immunological: No multiple septic spots on the skin Lymphatic: No generalized lymphadenopathy Psychiatry: Confused - Constitutional Vitals: Vital Signs - 12hr 11/04/18 11/05/18 11/05/18 22:00 00:20 05:44 Temperature 99.0 F 98.5 F Pulse Rate 76 68 Respiratory 18 18 Rate Blood Pressure 162/69 154/58 O2 Sat by Pulse 95 95 98 Oximetry 11/05/18 07:43 Temperature 98.5 F Pulse Rate 68 Respiratory 18 Rate Blood Pressure 183/78 O2 Sat by Pulse 96 Oximetry - Labs CBC & Chem 7: 11/04/18 11:04 11/05/18 12:40 Labs: Abnormal lab results 11/04/18 11/04/18 11/04/18 Range/Units 10:51 11:04 11:04 Hgb 11.7 L (11.8-15.2) gm/dl Hct 35.1 L (35.5-45.6) % RDW 16.5 H (13.2-15.2) % Lymph % (Auto) 8.5 L (13.4-35.0) % Lymph # 0.5 L (1.2-5.4) K/mm3 Seg Neutrophils % 86.9 H (40.0-70.0) % Sodium 135 L (137-145) mmol/L Potassium 5.3 H (3.6-5.0) mmol/L Chloride 97.5 L (98-107) mmol/L Carbon Dioxide 20 L (22-30) mmol/L BUN 62 H (9-20) mg/dL Creatinine 3.1 H (0.8-1.5) mg/dL Glucose 404 H (75-100) mg/dL POC Glucose 369 H (70-105) Troponin T 0.125 H* (0.00-0.029) ng/mL Triglycerides 314 H (2-149) mg/dL Cholesterol 225 H (50-199) mg/dL LDL Cholesterol Direct 148 H (50-130) mg/dL HDL Cholesterol 29 L (40-59) mg/dL 11/04/18 11/04/18 11/04/18 Range/Units 13:11 17:58 21:56 Hgb (11.8-15.2) gm/dl Hct (35.5-45.6) % RDW (13.2-15.2) % Lymph % (Auto) (13.4-35.0) % Lymph # (1.2-5.4) K/mm3 Seg Neutrophils % (40.0-70.0) % Sodium (137-145) mmol/L Potassium (3.6-5.0) mmol/L Chloride (98-107) mmol/L Carbon Dioxide (22-30) mmol/L BUN (9-20) mg/dL Creatinine (0.8-1.5) mg/dL Glucose (75-100) mg/dL POC Glucose 350 H 190 H 197 H (70-105) Troponin T (0.00-0.029) ng/mL Triglycerides (2-149) mg/dL Cholesterol (50-199) mg/dL LDL Cholesterol Direct (50-130) mg/dL HDL Cholesterol (40-59) mg/dL 11/05/18 Range/Units 07:50 Hgb (11.8-15.2) gm/dl Hct (35.5-45.6) % RDW (13.2-15.2) % Lymph % (Auto) (13.4-35.0) % Lymph # (1.2-5.4) K/mm3 Seg Neutrophils % (40.0-70.0) % Sodium (137-145) mmol/L Potassium (3.6-5.0) mmol/L Chloride (98-107) mmol/L Carbon Dioxide (22-30) mmol/L BUN (9-20) mg/dL Creatinine (0.8-1.5) mg/dL Glucose (75-100) mg/dL POC Glucose 228 H (70-105) Troponin T (0.00-0.029) ng/mL Triglycerides (2-149) mg/dL Cholesterol (50-199) mg/dL LDL Cholesterol Direct (50-130) mg/dL HDL Cholesterol (40-59) mg/dL
[2018-11-05] MEDS ORDERED: ATIVAN IV PRN (09:59)
[2018-11-05] MEDS ORDERED: NON-FORMULARY (Insulin Glargine,Hum.Rec.Anlog [Lantus Solostar] 20 UNIT) SQ SCH (10:00)
[2018-11-05] MEDS: LOPRESSOR PO SCH ×2 (10:24→22:30)
--- NOTE | 2018-11-05 11:28 | Cat Scan Report ---
PROCEDURE: CT HEAD/BRAIN WO CON TECHNIQUE: A noncontrast CT of the head was performed. HISTORY: stroke COMPARISON: None FINDINGS: There is moderate cerebral atrophy. There are mild ischemic changes in the white matter. There is no acute intracranial hemorrhage. There is no brain edema, mass effect or midline shift. Ventricular size is appropriate for brain volume. There is no abnormal extra-axial fluid collections. There is no skull fracture seen. The visualized paranasal sinuses are clear. IMPRESSION: There is no acute intracranial abnormality seen. This document is electronically signed by Ania Patel MD., November 05 2018 12:25:43 PM ET
[2018-11-05] MEDS: HumaLOG SUB-Q SCH ×3 (12:34→22:31)
[2018-11-05] MEDS: ZESTRIL PO SCH ×2 (12:35→22:30)
[2018-11-05 13:28] LABS: Calcium 9.1 mg/dL (8.4-10.2)
[2018-11-05] MEDS ORDERED: HEPARIN SUB-Q SCH (14:45)
[2018-11-05 21:54] LABS: Hematocrit 32.1 % (35.5-45.6); Hemoglobin 10.9 gm/dl (11.8-15.2)
[2018-11-05 22:04] LABS: INR 0.87 (0.87-1.13); Partial Thromboplastin Time 24.2 Sec. (24.2-36.6)
[2018-11-05] MEDS: LANTUS SUB-Q SCH (22:30)
[2018-11-06 01:07] LABS: Creatine Kinase MB 5.9 ng/mL (0.0-4.0)
[2018-11-06] MEDS: HEPARIN/ 0.45% NACL-25,000 UNIT/500 ML 25,000 UNIT/500 ML BAG IV SCH (03:25)
[2018-11-06] MEDS: NITRO DUR TD SCH (05:25)
[2018-11-06] MEDS: ZOFRAN ODT PO SCH ×2 (05:25→17:23)
[2018-11-06 06:04] LABS: Basophils % (Auto) 0.5 % (0.0-1.8); Eosinophils % (Auto) 0.9 % (0.0-4.3); Hematocrit 31.6 % (35.5-45.6); Hemoglobin 10.6 gm/dl (11.8-15.2); Lymphocytes # (Auto) 1.3 K/mm3 (1.2-5.4); Lymphocytes % (Auto) 29.1 % (13.4-35.0); Mean Corpuscular HGB Conc 34 % (32-34); Mean Corpuscular Volume 87 fl (84-94); Monocytes # (Auto) 0.5 K/mm3 (0.0-0.8); Monocytes % (Auto) 10.5 % (0.0-7.3); Platelet Count 119 K/mm3 (140-440); Red Blood Count 3.65 M/mm3 (3.65-5.03); Red Cell Distribution Width 17.1 % (13.2-15.2)
[2018-11-06 06:26] LABS: INR 1.16 (0.87-1.13)
[2018-11-06 06:27] LABS: Albumin 3.2 g/dL (3.9-5); Calcium 8.9 mg/dL (8.4-10.2); Partial Thromboplastin Time 42.5 Sec. (24.2-36.6)
[2018-11-06] MEDS: HumaLOG SUB-Q SCH ×4 (07:28→21:41)
--- NOTE | 2018-11-06 08:39 | Consultation ---
History of Present Illness - Reason for Consult Consult date: 11/06/18 acute renal failure, chronic renal failure - History of Present Illness The patient is a 78 YO male with history significant for DM type 2, HTN, CHF, CVA, COPD, Dementia and Nicotine Dependence who presented to [facility] ED for e valuation of difficulty speaking and generalized weakness. Pt was confused and unable to provide history and there was no family member at the bedside. Information was mostly obtained from previous documentation. His found him difficult to speak and not able to stand independently. Code stroke was called in the ED. Initial BP was 219/93. Pt admitted to telemetry and CVA protocol was initiated. Creatinine was 3.1 on admission but increased to 4 today. Past History Past Medical History: COPD, diabetes, heart failure, hypertension, stroke, other (Dementia, Nicotine Dependence) Past Surgical History: No surgical history, Other (reviewed) Social history: , lives with family, smoking Family history: hypertension Medications and Allergies Allergies Allergy/AdvReac Type Severity Reaction Status Date / Time No Known Allergies Allergy Unverified 10/16/17 21:44 Home Medications Medication Instructions Recorded Confirmed Last Taken Type Divalproex Dr [Melissa ALARCON] 250 mg PO BID 11/04/18 11/04/18 Unknown History Insulin Glargine,Hum.rec.anlog 20 unit SQ QAM 11/04/18 11/04/18 Unknown History [Lantus Solostar] Ondansetron [Zofran Odt] 4 mg PO Q8HR 11/04/18 11/04/18 Unknown History Sertraline [Zoloft] 100 mg PO QDAY 11/04/18 11/04/18 Unknown History Active Meds: Active Medications Acetaminophen (Tylenol) 650 mg PO Q4H PRN PRN Reason: Pain, Mild (1-3) Albuterol (Proventil) 2.5 mg IH Q3HRT PRN PRN Reason: Shortness Of Breath Aspirin (Aspirin) 325 mg PO QDAY [facility] Last Admin: 11/05/18 09:26 Dose: 325 mg Documented by: Atorvastatin Calcium (Lipitor) 40 mg PO QHS [facility] Last Admin: 11/05/18 22:30 Dose: 40 mg Documented by: Bisacodyl (Dulcolax) 10 mg NC QDAY PRN PRN Reason: Constipation Divalproex Sodium (Melissa Alarcon) 250 mg PO BID [facility] Last Admin: 11/05/18 22:33 Dose: 250 mg Documented by: Heparin Sodium/Sodium Chloride (Heparin/ 0.45% Nacl-25,000 Unit/500 Ml) 25,000 unit in 500 mls @ 20 mls/hr IV TITRATE [facility]; Protocol Last Admin: 11/06/18 03:25 Dose: 1,000 units/hr, 20 mls/hr Documented by: Insulin Glargine (Lantus) 20 units SUB-Q QHS [facility] Last Admin: 11/05/18 22:30 Dose: 20 units Documented by: Insulin Human Lispro (Humalog) 0 unit SUB-Q ACHS [facility]; Protocol Last Admin: 11/05/18 22:31 Dose: 3 unit Documented by: Lisinopril (Zestril) 40 mg PO BID [facility] Last Admin: 11/05/18 22:30 Dose: 40 mg Documented by: Magnesium Hydroxide (Milk Of Magnesia) 30 ml PO Q4H PRN PRN Reason: Constipation Metoclopramide HCl (Reglan) 10 mg PO Q6H PRN PRN Reason: Nausea And Vomiting Metoprolol Tartrate (Lopressor) 50 mg PO BID [facility] Last Admin: 11/05/18 22:30 Dose: 50 mg Documented by: Nitroglycerin (Nitro Dur) 0.2 mg TD QDAY@0600 [facility] Last Admin: 11/06/18 05:25 Dose: 0.2 mg Documented by: Ondansetron HCl (Zofran) 4 mg IV Q8H PRN PRN Reason: Nausea And Vomiting Ondansetron HCl (Zofran Odt) 4 mg PO Q8HR [facility] Last Admin: 11/06/18 05:25 Dose: 4 mg Documented by: Promethazine HCl (Phenergan) 25 mg NC Q6H PRN PRN Reason: Nausea And Vomiting Sertraline HCl (Zoloft) 100 mg PO QDAY [facility] Last Admin: 11/05/18 09:26 Dose: 100 mg Documented by: Sodium Chloride (Sodium Chloride Flush Syringe 10 Ml) 10 ml IV PRN PRN PRN Reason: LINE FLUSH Last Admin: 11/05/18 09:25 Dose: 10 ml Documented by: Review of Systems ROS unobtainable: due to mental status Exam - Vital Signs Vital signs: Vital Signs Resp 22 11/04/18 11:45 - General Appearance General appearance: well-developed, well-nourished, appears stated age, other (not in distress, on LE restrains) EENT: ATNC, PERRL, hearing intact, vision intact Neck: Present: neck supple, trachea midline Respiratory: Clear to Ascultation Heart: regular, S1S2, no murmurs Gastrointestinal: Present: normoactive bowel sounds. Absent: tenderness, dist ended Integumentary: no rash, warm and dry Neurologic: no focal deficit, no asterixis, confused, disoriented Musculoskeletal: Present: other (no edema) Results - Lab Results 11/06/18 04:59 11/06/18 04:59 Most recent lab results Calcium 8.9 mg/dL (8.4-10.2) 11/06/18 04:59 Phosphorus 3.60 mg/dL (2.5-4.5) 11/06/18 04:59 Magnesium 1.60 mg/dL (1.7-2.3) L 11/06/18 04:59 - Image Kidney/bladder ultrasound: pending Assessment and Plan 1. Acute kidney injury: Likely Vasomotor KENDRICK superimposed on CKD in the setting of BP fluctuation. Suspect some degree of volume depletion. Start on IV fluids. Stop Lisinopril. Renal US results pending. Monitor renal function. Renal prognosis is guarded. Avoid nephrotoxic agents. Meds dosage based on GFR. 2. FEN: IV fluids. Monitor lytes. 3. Simple partial seizure: Followed by Neuro. 4. Suspected CVA. 5. Encephalopathy. 6. HTN. 7. Anemia: POA.
--- NOTE | 2018-11-06 10:33 | Progress Note ---
Assessment and Plan 78 YO Male with HTN, CHF, CVA, DM, COPD, Dementia, Debility, Nicotine Dependence presents to ED for evaluation. Pt is confused and unable to provide detailed history. Pt history provided by his who is at bedside during exam and interview. As per , the patient was in his usual state of health around bedtime around 2030hrs. Upon waking from sleep around 0945 hrs, 11/04/18, and was found to have difficulty speaking, as well as generalized weakness and unable to stand independently. EMS notified and upon arrival the patient was found to be in distress. Pt transported to [facility]. Pt seen and evaluated in ED and a code stroke was called. Teleneurology consulted and the patient was deemed not to be a candidate for TPA. Pt admitted to telemetry and initiated on CVA protocol. Neurology consulted in ED. No prior admission for review. CT scan of the brain was unremarkable. Awaiting MRI - Possible CVA (cerebral vascular accident) CVA Protocol: CT Brain - nl MRI Brain, - was not done yesterday as patient was not able to lay quietly on the table despite sedation with Ativan 0.5 mg (given his age and renal function) We will increase the dose of sedation and attempt MRI Teleneurology consulted, Echo, Carotid doppler, Antiplatelet therapy, lipid panel, statin therapy, Neurology consulted, PT/OT/Speech therapy - Metabolic Encephalopathy acute CT Head, neuro checks, supportive care. Treat underlying renal failure - ARF (acute renal failure) with tubular necrosis Continue IVF resuscitation therapy, nephrology consulted, urine electrolytes, Follow-up with renal ultrasound Per pt's , patient had refused to follow up with a [facility] since he was diagnosed with chronic renal failure and renal function had been deteriorating - Elevated troponin likely secondary to ARF. Pt has no chest pain Will trend Continue with ASA. Add metoprolol, Atorvastatin and lisinopril, NTG Discussed with and consulted cardiology - COPD (chronic obstructive pulmonary disease) Chronic bronchitis type: mixed simple and mucopurulent Supplemental oxygen, nebulizer therapy, NIPPV as clinically indicated, - Diabetes ADA diet, insulin sliding scale, accu check - HTN (hypertension) Permissive hypertension overnight, monitor BP q shift, - Debility Current Visit: Yes Status: Acute Plan to address problem: PT consulted, Case management consulted for D/C Planning/SNF Placement - Nicotine dependence Tobacco cessation counseling was done - DVT prophylaxis SCD to BLE while in bed, prophylactic heparin - Discussed at [facility] with patient's regarding care plan. She expressed understanding - Patient is DNR. presented DNR papers to the nursing staff. Time spent: 38 minutes Subjective Date of service: 11/06/18 Principal diagnosis: metabolic encephalopathy, hypertension, acute Renal faulure Interval history: Potassium and examined. Patient's by the bedside. Still confused. by the bed side. Objective - Exam Narrative Exam: Constitutional: Well-nourished well-developed. Confused. In no distress Head: Normocephalic atraumatic Eyes: Pupils are equal round and reactive to light Nose: No enlarged turbinates, no septal deviation. Mouth: Moist mucous membranes. Neck: Supple no thyromegaly. No bruit. No JVD Heart: Regular rate and rhythm, S1-S2 normal. No rubs murmurs or gallop Lungs: Clear to auscultation bilaterally. no rales or rhonchi Abdomen: Soft, nontender. Bowel sound are present. Extremities: No edema, no cyanosis, no clubbing. Neuro: Alert oriented Oriented x1. Confused. moves all limbs Skin: No rashes or hyperpigmented spots Musculoskeletal system: No joint pain or swelling Hematological: No petechia or subcutanous hemorrhages. Immunological: No multiple septic spots on the skin Lymphatic: No generalized lymphadenopathy Psychiatry: Confused - Constitutional Vitals: Vital Signs - 12hr 11/05/18 11/06/18 11/06/18 23:07 04:49 07:00 Temperature 98.0 F 98.0 F 97.1 F L Pulse Rate 62 60 62 Respiratory 18 18 18 Rate Blood Pressure 140/63 146/63 Blood Pressure 132/66 [Right] O2 Sat by Pulse 97 98 97 Oximetry 11/06/18 11/06/18 07:17 08:00 Temperature 97.1 F L Pulse Rate Respiratory 18 Rate Blood Pressure 132/66 Blood Pressure [Right] O2 Sat by Pulse 96 Oximetry - Labs CBC & Chem 7: 11/06/18 04:59 11/06/18 04:59 Labs: Abnormal lab results 11/05/18 11/05/18 11/05/18 Range/Units 12:23 12:40 12:40 Hgb (11.8-15.2) gm/dl Hct (35.5-45.6) % RDW (13.2-15.2) % Plt Count (140-440) K/mm3 [place] % (Auto) (0.0-7.3) % PT (12.2-14.9) Sec. INR (0.87-1.13) APTT (24.2-36.6) Sec. Carbon Dioxide (22-30) mmol/L BUN 69 H (9-20) mg/dL Creatinine 3.4 H (0.8-1.5) mg/dL Glucose 301 H (75-100) mg/dL POC Glucose 337 H (70-105) Magnesium (1.7-2.3) mg/dL Total Creatine Kinase (55-170) units/L CK-MB (CK-2) (0.0-4.0) ng/mL Troponin T 0.109 H* (0.00-0.029) ng/mL Albumin (3.9-5) g/dL 11/05/18 11/05/18 11/05/18 Range/Units 16:32 19:34 20:50 Hgb (11.8-15.2) gm/dl Hct (35.5-45.6) % RDW (13.2-15.2) % Plt Count (140-440) K/mm3 [place] % (Auto) (0.0-7.3) % PT (12.2-14.9) Sec. INR (0.87-1.13) APTT (24.2-36.6) Sec. Carbon Dioxide (22-30) mmol/L BUN (9-20) mg/dL Creatinine (0.8-1.5) mg/dL Glucose (75-100) mg/dL POC Glucose 180 H 211 H (70-105) Magnesium (1.7-2.3) mg/dL Total Creatine Kinase (55-170) units/L CK-MB (CK-2) (0.0-4.0) ng/mL Troponin T 0.129 H* (0.00-0.029) ng/mL Albumin (3.9-5) g/dL 11/05/18 11/06/18 11/06/18 Range/Units 21:29 00:31 04:59 Hgb 10.9 L 10.6 L (11.8-15.2) gm/dl Hct 32.1 L 31.6 L (35.5-45.6) % RDW 17.1 H (13.2-15.2) % Plt Count 139 L 119 L (140-440) K/mm3 [place] % (Auto) 10.5 H (0.0-7.3) % PT (12.2-14.9) Sec. INR (0.87-1.13) APTT (24.2-36.6) Sec. Carbon Dioxide (22-30) mmol/L BUN (9-20) mg/dL Creatinine (0.8-1.5) mg/dL Glucose (75-100) mg/dL POC Glucose (70-105) Magnesium (1.7-2.3) mg/dL Total Creatine Kinase 557 H (55-170) units/L CK-MB (CK-2) 5.9 H (0.0-4.0) ng/mL Troponin T 0.133 H* (0.00-0.029) ng/mL Albumin (3.9-5) g/dL 11/06/18 11/06/18 11/06/18 Range/Units 04:59 04:59 07:22 Hgb (11.8-15.2) gm/dl Hct (35.5-45.6) % RDW (13.2-15.2) % Plt Count (140-440) K/mm3 [place] % (Auto) (0.0-7.3) % PT 15.5 H (12.2-14.9) Sec. INR 1.16 H (0.87-1.13) APTT 42.5 H (24.2-36.6) Sec. Carbon Dioxide 20 L (22-30) mmol/L BUN 75 H (9-20) mg/dL Creatinine 4.0 H (0.8-1.5) mg/dL Glucose 170 H (75-100) mg/dL POC Glucose 165 H (70-105) Magnesium 1.60 L (1.7-2.3) mg/dL Total Creatine Kinase (55-170) units/L CK-MB (CK-2) (0.0-4.0) ng/mL Troponin T (0.00-0.029) ng/mL Albumin 3.2 L (3.9-5) g/dL
[2018-11-06] MEDS: LOPRESSOR PO SCH ×2 (11:24→21:40)
[2018-11-06] MEDS: ZOLOFT PO SCH (11:24)
[2018-11-06] MEDS: ZESTRIL PO SCH (11:24)
[2018-11-06] MEDS: ASPIRIN PO SCH (11:24)
--- NOTE | 2018-11-06 12:53 | Ultrasound Report ---
PROCEDURE: US RENAL BILAT TECHNIQUE: Renal ultrasound HISTORY: renal failure COMPARISON: None FINDINGS: Right kidney measures 9.7 x 5.4 x 5.9 cm. Left kidney measures 11.4 x 5.5 x 5.6 cm. There is a 1.6 x 1.8 x 1.8 cm lesion at the inferior pole of left kidney which is not optimally visualized but probabl y a small cyst. There is increased echogenicity of renal parenchyma bilaterally which likely reflects medical renal d isease. No renal calculi seen sonographically. There is no hydronephrosis IMPRESSION: 1.8 cm hypoechoic lesion at lower pole of left kidney is probably a cyst but not optimal ly visualized. Echogenicity of renal parenchyma suggestive of medical renal disease. This document is electronically signed by Ania Patel MD., November 06 2018 01:51:21 PM ET
[2018-11-06] MEDS ORDERED: NACL 0.9% 1000 ML 1,000 ML IV SCH (13:00)
[2018-11-06] MEDS: MAG-OX PO SCH ×2 (13:24→21:39)
[2018-11-06] MEDS: LANTUS SUB-Q SCH (21:43)
[2018-11-07] MEDS: HEPARIN/ 0.45% NACL-25,000 UNIT/500 ML 25,000 UNIT/500 ML BAG IV SCH (01:07)
--- NOTE | 2018-11-07 01:28 | Consultation ---
REFERRING PHYSICIAN: Erika Taveras MD REASON FOR CONSULTATION: Advice and opinion regarding elevated troponin. HISTORY OF PRESENT ILLNESS: The patient is a very pleasant 78-year-old gentleman with history of hypertension, CVA, questionable CHF, diabetes, COPD, dementia, debility, nicotine dependence, who presents to the Emergency Room for confusion. His history is provided from the chart and from his , was in his usual state of health, had difficulty speaking, generalized weakness, unable to stand independently. He was transported to the Emergency Room here. Tele Neurology was consulted for possible stroke, deemed not a candidate for TPA and was admitted. He is seen on the telemetry floor. Appears comfortable, denies any chest pain, shortness of breath, syncope or presyncope. Feels " No complaints. No rashes, headache, blurred vision, fevers, chills, nausea, vomiting or shortness of breath. PAST MEDICAL HISTORY: As aforementioned. SOCIAL HISTORY: , lives with family, does smoke. FAMILY HISTORY: Hypertension. ALLERGIES: No known drug, food, or environmental allergies. REVIEW OF SYSTEMS: As per HPI. Inpatient and outpatient medications reviewed. PHYSICAL EXAMINATION: VITAL SIGNS: Blood pressure is 130/60. He is afebrile. Tele reveals sinus rhythm in the 60s and 70s, O2 sat is 96% on room air. GENERAL: This is an elderly gentleman, in no apparent distress, alert and oriented. HEENT: Sclerae anicteric. PERRLA. NECK: Supple. No mass or JVD. CHEST: Clear to auscultation bilaterally. Good air movement. CARDIOVASCULAR: Regular rate and rhythm, S1, S2. ABDOMEN: Soft, nontender, nondistended. Normoactive bowel sounds in 4 quadrants. No mass or bruits. EXTREMITIES: No cyanosis, clubbing or edema. Good peripheral pulses. SKIN: Intact. No rashes. LABORATORY AND DIAGNOSTIC DATA: ECG reveals normal sinus rhythm, left ventricular hypertrophy. Hemoglobin 10.6, hematocrit 31, platelets 119, bicarb is 20. Sodium 137, potassium 4.3, creatinine is 4.0, troponin is 0.10, 0.12 and 0.13, albumin is 3.2. Head CT shows no acute intracranial abnormality. Carotid shows no significant disease. ASSESSMENT: The patient is a pleasant 78-year-old gentleman. 1. Minimally elevated troponin, which are flat, likely multifactorial in the milieu of acute renal failure and cerebrovascular accident, unlikely to be primary cardiac etiology. Continue aspirin and statin therapy. 2. Cerebrovascular accident, per Neurology. No evidence of a cardiac dysrhythmia/atrial fibrillation. 3. Metabolic encephalopathy. 4. Acute renal failure. Nephrology following. Renal ultrasound is pending. 5. Chronic obstructive pulmonary disease. 6. Active tobacco abuse. 7. Diabetes. 8. Hypertension, under good control. PLAN: At this point, we will check an echocardiogram. Continue current medications. Continue telemetry. We will follow along with you. Thank you for this consultation. We will be happy following with you. JOB# [id number] SHAYLA/LIV
[2018-11-07 03:52] LABS: Creatinine,Urine 151.2 mg/dL (0.1-20.0)
[2018-11-07 05:17] LABS: Basophils % (Auto) 0.4 % (0.0-1.8); Eosinophils # (Auto) 0.1 K/mm3 (0.0-0.4); Eosinophils % (Auto) 0.9 % (0.0-4.3); Hematocrit 33.4 % (35.5-45.6); Lymphocytes # (Auto) 0.9 K/mm3 (1.2-5.4); Lymphocytes % (Auto) 16.7 % (13.4-35.0); Mean Corpuscular HGB Conc 33 % (32-34); Mean Corpuscular Volume 87 fl (84-94); Monocytes # (Auto) 0.6 K/mm3 (0.0-0.8); Monocytes % (Auto) 9.9 % (0.0-7.3); Platelet Count 142 K/mm3 (140-440); Red Blood Count 3.86 M/mm3 (3.65-5.03); Red Cell Distribution Width 16.8 % (13.2-15.2)
[2018-11-07 05:43] LABS: Albumin 3.3 g/dL (3.9-5); Calcium 8.7 mg/dL (8.4-10.2)
[2018-11-07] MEDS: ZOFRAN ODT PO SCH ×5 (05:48→22:50)
[2018-11-07] MEDS: NITRO DUR TD SCH (05:50)
[2018-11-07] MEDS ORDERED: ATIVAN IV PRN ×2 (10:00→10:25)
--- NOTE | 2018-11-07 10:34 | Progress Note ---
Assessment and Plan 1. Acute kidney injury: Likely Vasomotor KENDRICK superimposed on CKD in the setting of BP fluctuation. Continue IV fluids. Renal US negative for hydro. Monitor renal function. Renal prognosis is guarded. Avoid nephrotoxic agents. Meds dosage based on GFR. 2. FEN: IV fluids. Monitor lytes. 3. Simple partial seizure: Followed by Neuro. 4. Suspected CVA. 5. Encephalopathy. 6. HTN. 7. Anemia: POA. Subjective Date of service: 11/07/18 Principal diagnosis: metabolic encephalopathy, hypertension, acute Renal faulure Interval history: Patient was seen and examined at the bedside. Objective - Vital Signs Vital signs: Vital Signs - 12hr 11/06/18 11/07/18 11/07/18 23:29 04:44 05:50 Temperature 97.7 F 98 F Pulse Rate 59 L 64 64 Respiratory 18 18 Rate Blood Pressure 157/65 Blood Pressure 141/68 [Right] O2 Sat by Pulse 96 99 Oximetry 11/07/18 07:26 Temperature 98.2 F Pulse Rate 58 L Respiratory 14 Rate Blood Pressure 165/68 Blood Pressure [Right] O2 Sat by Pulse 95 Oximetry - General Appearance General appearance: well-developed, appears stated age, other (not in distress) EENT: ATNC, PERRL, hearing intact, vision intact Neck: supple Respiratory: Present: Clear to Ascultation Cardiology: regular, S1S2, no murmurs Gastrointestinal: normoactive bowel sounds, no tenderness, no distended Integumentary: no rash, warm and dry Neurologic: no focal deficit, no asterixis, confused, disoriented Musculoskeletal: other (no edema) - Lab 11/09/18 06:02 11/09/18 07:52 Most recent lab results Calcium 8.7 mg/dL (8.4-10.2) 11/07/18 04:18 Phosphorus 3.60 mg/dL (2.5-4.5) 11/06/18 04:59 Magnesium 1.60 mg/dL (1.7-2.3) L 11/06/18 04:59 151.2 mg/dL (0.1-20.0) H 11/07/18 03:30 45 mmol/L 11/07/18 03:30 Medications & Allergies - Medications Allergies/Adverse Reactions: Allergies No Known Allergies Allergy (Unverified 10/16/17 21:44) Home Medications: Home Medications Medication Instructions Recorded Confirmed Last Taken Type Divalprokwan Alarcon [Rafael ALARCON] 250 mg PO BID 11/04/18 11/04/18 Unknown History Insulin Glargine,Hum.rec.anlog 20 unit SQ QAM 11/04/18 11/04/18 Unknown History [Lantus Solostar] Ondansetron [Zofran Odt] 4 mg PO Q8HR 11/04/18 11/04/18 Unknown History Sertraline [Zoloft] 100 mg PO QDAY 11/04/18 11/04/18 Unknown History Active Medications: Generic Name Dose Route Start Last Admin Trade Name Freq PRN Reason Stop Dose Admin Acetaminophen 650 mg 11/04/18 15:13 Tylenol PO Q4H PRN Pain, Mild (1-3) Albuterol 2.5 mg 11/04/18 15:13 Proventil IH Q3HRT PRN Shortness Of Breath Aspirin 325 mg 11/05/18 10:00 11/06/18 11:24 Aspirin PO 325 mg QDAY [facility] Administration Atorvastatin Calcium 40 mg 11/05/18 22:00 11/06/18 21:39 Lipitor PO 40 mg QHS [facility] Administration Bisacodyl 10 mg 11/04/18 15:13 Dulcolax IA QDAY PRN Constipation Divalproex Sodium 250 mg 11/04/18 22:00 11/06/18 21:40 Rafael Alarcon PO 250 mg BID [facility] Administration Sodium Chloride 1,000 mls @ 60 mls/hr 11/06/18 13:00 11/07/18 01:12 Nacl 0.9% 1000 Ml IV 60 mls/hr DIRECT [facility] Administration Insulin Glargine 20 units 11/04/18 22:00 11/06/18 21:43 Lantus SUB-Q 20 units QHS [facility] Administration Insulin Human Lispro 0 unit 11/05/18 11:30 11/06/18 21:41 Humalog SUB-Q Not Given ACHS [facility] Protocol Lorazepam 1 mg 11/07/18 10:00 Ativan IV Q4H PRN Agitation Magnesium Hydroxide 30 ml 11/04/18 15:13 Milk Of Magnesia PO Q4H PRN Constipation Magnesium Oxide 400 mg 11/06/18 13:00 11/06/18 21:39 Mag-Ox PO 400 mg BID [facility] Administration Metoclopramide HCl 10 mg 11/04/18 15:13 Reglan PO Q6H PRN Nausea And Vomiting Metoprolol Tartrate 50 mg 11/05/18 10:00 11/06/18 21:40 Lopressor PO 50 mg BID [facility] Administration Nitroglycerin 0.2 mg 11/06/18 06:00 11/07/18 05:50 Nitro Dur TD 0.2 mg QDAY@0600 [facility] Administration Ondansetron HCl 4 mg 11/04/18 15:13 Zofran IV Q8H PRN Nausea And Vomiting Ondansetron HCl 4 mg 11/04/18 22:00 11/07/18 05:50 Zofran Odt PO 4 mg Q8HR [facility] Administration Promethazine HCl 25 mg 11/04/18 15:13 Phenergan IA Q6H PRN Nausea And Vomiting Sertraline HCl 100 mg 11/05/18 10:00 11/06/18 11:24 Zoloft PO 100 mg QDAY [facility] Administration Sodium Chloride 10 ml 11/04/18 15:13 11/05/18 09:25 Sodium Chloride Flush Syringe 10 Ml IV 10 ml PRN PRN Administration LINE FLUSH
--- NOTE | 2018-11-07 11:23 | Progress Note ---
Assessment and Plan Head CT with NAF, carotid studies with no significant disease. Pt for MRI today. Per neurology consultation yesterday, patient most likely had an episode of simple partial seizure, pt's confusion could be from metabolic encephalopathy as well as from post ictal state. Follow neurology recs. Per pt's family member at bedside, pt is regularly followed [facility]. Pt reportedly has history of "congestive heart failure" and "scarring" on his heart as a result of a previous "silent heart attack". Pt has reportedly been recommended CABG by the [facility] in the past which he has refused. Pt and his family member at bedside continue to adamantly refuse any aggressive or invasive measures, including HD or ischemic evaluation. They wish for heparin gtt to be discontinued. Pt appears comfortable and hemodynamically stable. Will d/c heparin gtt as requested and await echo. The patient has been seen in conjunction with Dr. Magallanes who agrees with the assessment and plan of care. - Patient Problems (1) NSTEMI (non-ST elevated myocardial infarction) Current Visit: Yes Status: Acute Plan to address problem: type II (2) Altered mental status Current Visit: Yes Status: Acute (3) Seizure Current Visit: Yes Status: Suspected (4) History of CVA (cerebrovascular accident) Current Visit: Yes Status: Chronic (5) Acute on chronic renal failure Current Visit: Yes Status: Chronic (6) HTN (hypertension) Current Visit: Yes Status: Chronic Qualifiers: Hypertension type: essential hypertension Qualified Code(s): I10 - Essential (primary) hypertension (7) COPD (chronic obstructive pulmonary disease) Current Visit: Yes Status: Chronic Qualifiers: Chronic bronchitis type: mixed simple and mucopurulent (8) Nicotine dependence Current Visit: Yes Status: Chronic Qualifiers: Nicotine product type: cigarettes (9) Uncontrolled diabetes mellitus Current Visit: Yes Status: Chronic (10) Hyperlipidemia Current Visit: Yes Status: Chronic Subjective Date of service: 11/07/18 Principal diagnosis: metabolic encephalopathy, hypertension, acute Renal faulure Interval history: pt resting in bed, no apparent distress, appears lethargic and confused, family member at bedside. tele reviewed - in SR/SB overnight. Objective Last Vital Signs Temp 98.2 F 11/07/18 07:26 Pulse 58 L 11/07/18 07:26 Resp 14 11/07/18 07:26 BP 165/68 11/07/18 07:26 Pulse Ox 95 11/07/18 07:26 - Physical Examination General: Other (lethargic, confused) Neck: Positive: neck supple, trachea midline Cardiac: Positive: Reg Rate and Rhythm, S1/S2 Lungs: Positive: Decreased Breath Sounds Neuro: Positive: Other (lethargic, confused) Musculoskeletal: No Pain Extremities: Absent: edema - Labs and Meds Cardiac Enzymes 11/07/18 Range/Units 04:18 AST 24 (5-40) units/L CBC 11/07/18 Range/Units 04:18 WBC 5.7 (4.5-11.0) K/mm3 RBC 3.86 (3.65-5.03) M/mm3 Hgb 11.0 L (11.8-15.2) gm/dl Hct 33.4 L (35.5-45.6) % Plt Count 142 (140-440) K/mm3 Lymph # 0.9 L (1.2-5.4) K/mm3 [place] # 0.6 (0.0-0.8) K/mm3 Eos # 0.1 (0.0-0.4) K/mm3 Baso # 0.0 (0.0-0.1) K/mm3 Comprehensive Metabolic Panel 11/07/18 Range/Units 04:18 Sodium 138 (137-145) mmol/L Potassium 4.3 (3.6-5.0) mmol/L Chloride 104.5 (98-107) mmol/L Carbon Dioxide 20 L (22-30) mmol/L BUN 83 H (9-20) mg/dL Creatinine 4.5 H (0.8-1.5) mg/dL Glucose 77 (75-100) mg/dL Calcium 8.7 (8.4-10.2) mg/dL AST 24 (5-40) units/L ALT 11 (7-56) units/L Alkaline Phosphatase 77 (35-129) units/L Total Protein 6.6 (6.3-8.2) g/dL Albumin 3.3 L (3.9-5) g/dL - Imaging and Cardiology EKG: report reviewed, image reviewed Echo: pending - Telemetry EKG Rhythm: Sinus Rhythm
[2018-11-07] MEDS: ASPIRIN PO SCH (11:52)
[2018-11-07] MEDS: ZOLOFT PO SCH (11:53)
[2018-11-07] MEDS: HumaLOG SUB-Q SCH ×4 (11:53→22:55)
[2018-11-07] MEDS: MAG-OX PO SCH ×2 (11:53→22:50)
[2018-11-07] MEDS: LOPRESSOR PO SCH ×2 (11:53→22:55)
--- NOTE | 2018-11-07 14:16 | Progress Note ---
Assessment and Plan - Possible CVA (cerebral vascular accident) vs seizure CVA Protocol: CT Brain - nl MRI Brain - was not done as patient was not able to lay quietly on the table despite sedation with Ativan 0.5 mg Neurology concluded possible seizure, cont dilantin and keppra - Metabolic Encephalopathy acute, likely from Uremia cont neuro checks, supportive care. Treat underlying renal failure - ARF (acute renal failure) with tubular necrosis Continue IVF resuscitation therapy, nephrology consulted, Per pt's , patient had refused to follow up with a [facility] since he was diagnosed with chronic renal failure and renal function had been deteriorating. refusing HD if needed - Elevated troponin likely secondary to ARF. Pt has no chest pain Will trend Continue with ASA. Add metoprolol, Atorvastatin and lisinopril, NTG Discussed with and consulted cardiology refusing any further workup - COPD (chronic obstructive pulmonary disease) Supplemental oxygen, nebulizer therapy, NIPPV as clinically indicated, - Diabetes ADA diet, insulin sliding scale, accu check - HTN (hypertension) monitor BP q shift, - Debility PT consulted, Case management consulted for D/C Planning/SNF Placement with hospice - Nicotine dependence Tobacco cessation counseling was done - DVT prophylaxis SCD to BLE while in bed, prophylactic heparin - Discussed at [facility] with patient's regarding care plan. She expressed understanding - Patient is DNR. presented DNR papers to the nursing staff. pending d/c to SNF with hospice Time spent: 38 minutes Brief history: 78 YO Male with HTN, CHF, CVA, DM, COPD, Dementia, Debility, Nicotine Dependence presents to ED for evaluation of confusion, difficulty speaking, urinary incontinance and unable to stand independently. EMS notified and upon arrival in ED a code stroke was called. Teleneurology consulted and the patient was deemed not to be a candidate for TPA. Pt admitted to telemetry and initiated on CVA protocol. Neurology consulted in ED. CT scan of the brain was unremarkable. unable to do MRI as pt not cooperative. Also noted declining renal function, patient's declined HD. His troponin also elevated but refusing heparin drip or any further workup. Patient's wants SNF with hospice. Objective Constitutional: Well-nourished well-developed. In no distress Head: Normocephalic atraumatic Eyes: Pupils are equal round and reactive to light Nose: No enlarged turbinates, no septal deviation. Mouth: Moist mucous membranes. Neck: Supple no thyromegaly. No bruit. No JVD Heart: Regular rate and rhythm, S1-S2 normal. No rubs murmurs or gallop Lungs: Clear to auscultation bilaterally. no rales or rhonchi Abdomen: Soft, nontender. Bowel sound are present. Extremities: No edema, no cyanosis, no clubbing. Neuro: Alert oriented Oriented x1. Confused. moves all limbs Skin: No rashes or hyperpigmented spots Musculoskeletal system: No joint pain or swelling Lymphatic: No generalized lymphadenopathy Psychiatry: Cooperative Subjective Date of service: 11/07/18 Principal diagnosis: metabolic encephalopathy, hypertension, acute Renal faulure Interval history: Patient seen and examined Patient's by the bedside. patient denies any focal weakness. tolerating diet Objective - Constitutional Vitals: Vital Signs - 12hr 11/07/18 11/07/18 11/07/18 04:44 05:50 07:26 Temperature 98 F 98.2 F Pulse Rate 64 64 58 L Respiratory 18 14 Rate Blood Pressure 165/68 Blood Pressure 141/68 [Right] O2 Sat by Pulse 99 95 Oximetry 11/07/18 11/07/18 12:28 13:05 Temperature 97.8 F Pulse Rate 57 L Respiratory 16 Rate Blood Pressure 132/62 Blood Pressure [Right] O2 Sat by Pulse 93 97 Oximetry - Labs CBC & Chem 7: 11/07/18 04:18 11/07/18 04:18 Labs: Abnormal lab results 11/06/18 11/06/18 11/07/18 Range/Units 16:53 21:04 03:30 Hgb (11.8-15.2) gm/dl Hct (35.5-45.6) % RDW (13.2-15.2) % [place] % (Auto) (0.0-7.3) % Lymph # (1.2-5.4) K/mm3 Seg Neutrophils % (40.0-70.0) % Carbon Dioxide (22-30) mmol/L BUN (9-20) mg/dL Creatinine (0.8-1.5) mg/dL POC Glucose 300 H 149 H (70-105) Albumin (3.9-5) g/dL PTH Intact (15-65) pg/mL Urine Creatinine 151.2 H (0.1-20.0) mg/dL 11/07/18 11/07/18 11/07/18 Range/Units 04:18 04:18 04:18 Hgb 11.0 L (11.8-15.2) gm/dl Hct 33.4 L (35.5-45.6) % RDW 16.8 H (13.2-15.2) % [place] % (Auto) 9.9 H (0.0-7.3) % Lymph # 0.9 L (1.2-5.4) K/mm3 Seg Neutrophils % 72.1 H (40.0-70.0) % Carbon Dioxide 20 L (22-30) mmol/L BUN 83 H (9-20) mg/dL Creatinine 4.5 H (0.8-1.5) mg/dL POC Glucose (70-105) Albumin 3.3 L (3.9-5) g/dL PTH Intact 463.3 H (15-65) pg/mL Urine Creatinine (0.1-20.0) mg/dL 11/07/18 Range/Units 07:35 Hgb (11.8-15.2) gm/dl Hct (35.5-45.6) % RDW (13.2-15.2) % [place] % (Auto) (0.0-7.3) % Lymph # (1.2-5.4) K/mm3 Seg Neutrophils % (40.0-70.0) % Carbon Dioxide (22-30) mmol/L BUN (9-20) mg/dL Creatinine (0.8-1.5) mg/dL POC Glucose 67 L (70-105) Albumin (3.9-5) g/dL PTH Intact (15-65) pg/mL Urine Creatinine (0.1-20.0) mg/dL
--- NOTE | 2018-11-07 15:10 | Cat Scan Report ---
CT HEAD WITHOUT CONTRAST: HISTORY: Possible CVA. TECHNIQUE: Sequential CT images without contrast. FINDINGS: Images obtained show bilateral prominence of the sulci and ventricles. There are no abnormal intra- or extra-axial blood or fluid collections. There are no focal masses or evidence of mass effect. The arenas white matter differentiation appears within normal limits. Regions of periventricular decreased attenuation are consistent with microangiopathic ischemic disease. Chronic lacunar infarct in the left maida is unchanged since 11/05/18. The posterior fossa structures including the fourth ventricle, cerebellum, and brainstem appear normal. IMPRESSION: Evidence of atrophy and microangiopathic ischemic disease. Chronic lacunar infarct in the left maida. No acute intracranial process noted.
[2018-11-07] MEDS: KEPPRA PO SCH ×2 (15:54→22:50)
[2018-11-07] MEDS: SODIUM CHLORIDE FLUSH SYRINGE 10 ML IV PRN (22:50)
[2018-11-07] MEDS: LANTUS SUB-Q SCH (22:55)
[2018-11-08 04:47] LABS: Basophils % (Auto) 0.2 % (0.0-1.8); Eosinophils # (Auto) 0.1 K/mm3 (0.0-0.4); Eosinophils % (Auto) 0.8 % (0.0-4.3); Hematocrit 32.7 % (35.5-45.6); Lymphocytes # (Auto) 0.9 K/mm3 (1.2-5.4); Lymphocytes % (Auto) 13.8 % (13.4-35.0); Mean Corpuscular HGB Conc 34 % (32-34); Mean Corpuscular Volume 86 fl (84-94); Monocytes # (Auto) 0.7 K/mm3 (0.0-0.8); Monocytes % (Auto) 10.9 % (0.0-7.3); Platelet Count 130 K/mm3 (140-440); Red Blood Count 3.78 M/mm3 (3.65-5.03); Red Cell Distribution Width 16.9 % (13.2-15.2)
[2018-11-08 05:14] LABS: Albumin 3.3 g/dL (3.9-5); Calcium 9.3 mg/dL (8.4-10.2)
[2018-11-08] MEDS: NITRO DUR TD SCH (05:36)
[2018-11-08] MEDS: ZOFRAN ODT PO SCH ×3 (05:41→22:16)
--- NOTE | 2018-11-08 09:22 | Progress Note ---
Assessment and Plan 1. 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 Continue IV fluids. Slight decreased in the creatinine level noted. Renal US negative for hydro. Monitor renal function. Renal prognosis is guarded. Avoid nephrotoxic agents. Meds dosage based on GFR. 2. FEN: IV fluids. Monitor lytes. 3. Simple partial seizure: Followed by Neuro. 4. Suspected CVA. 5. Encephalopathy. 6. HTN. 7. Anemia: POA. Subjective Date of service: 11/08/18 Principal diagnosis: metabolic encephalopathy, hypertension, acute Renal faulure Interval history: Patient was seen and examined at the bedside. at the bedside. Objective - Vital Signs Vital signs: Vital Signs - 12hr 11/07/18 11/07/18 11/08/18 22:55 23:18 04:00 Temperature 99.2 F Pulse Rate 68 65 64 Respiratory 18 Rate Blood Pressure 157/66 159/62 O2 Sat by Pulse 93 Oximetry 11/08/18 11/08/18 04:08 05:36 Temperature 97.6 F Pulse Rate 64 58 L Respiratory 20 Rate Blood Pressure 147/56 157/56 O2 Sat by Pulse 94 Oximetry - General Appearance General appearance: well-developed, well-nourished, appears stated age, other (no distress, on restrains) EENT: ATNC, PERRL, mucous membranes dry, hearing intact, vision intact Neck: supple Respiratory: Present: Clear to Ascultation Cardiology: regular, S1S2, no murmurs Gastrointestinal: normoactive bowel sounds, no tenderness, no distended Integumentary: no rash, warm and dry Neurologic: no focal deficit, no asterixis, confused, disoriented Musculoskeletal: other (no edema) - Lab 11/09/18 06:02 11/09/18 07:52 Most recent lab results Calcium 9.3 mg/dL (8.4-10.2) 11/08/18 04:13 Phosphorus 3.80 mg/dL (2.5-4.5) 11/08/18 04:13 Magnesium 1.60 mg/dL (1.7-2.3) L 11/06/18 04:59 151.2 mg/dL (0.1-20.0) H 11/07/18 03:30 45 mmol/L 11/07/18 03:30 Medications & Allergies - Medications Allergies/Adverse Reactions: Allergies No Known Allergies Allergy (Unverified 10/16/17 21:44) Home Medications: Home Medications Medication Instructions Recorded Confirmed Last Taken Type Reed Alarcon [Rafael ALARCON] 250 mg PO BID 11/04/18 11/04/18 Unknown History Insulin Glargine,Hum.rec.anlog 20 unit SQ QAM 11/04/18 11/04/18 Unknown History [Lantus Solostar] Ondansetron [Zofran Odt] 4 mg PO Q8HR 11/04/18 11/04/18 Unknown History Sertraline [Zoloft] 100 mg PO QDAY 11/04/18 11/04/18 Unknown History Active Medications: Generic Name Dose Route Start Last Admin Trade Name Freq PRN Reason Stop Dose Admin Acetaminophen 650 mg 11/04/18 15:13 Tylenol PO Q4H PRN Pain, Mild (1-3) Albuterol 2.5 mg 11/04/18 15:13 Proventil IH Q3HRT PRN Shortness Of Breath Aspirin 325 mg 11/05/18 10:00 11/07/18 11:52 Aspirin PO 325 mg QDAY PRESTON Administration Atorvastatin Calcium 40 mg 11/05/18 22:00 11/07/18 22:50 Lipitor PO 40 mg QHS PRESTON Administration Bisacodyl 10 mg 11/04/18 15:13 Dulcolax GA QDAY PRN Constipation Divalproex Sodium 250 mg 11/04/18 22:00 11/07/18 22:50 Rafael Alarcon PO 250 mg BID PRESTON Administration Sodium Chloride 1,000 mls @ 60 mls/hr 11/06/18 13:00 11/07/18 01:12 Nacl 0.9% 1000 Ml IV 60 mls/hr DIRECT PRESTON Administration Insulin Glargine 20 units 11/04/18 22:00 11/07/18 22:55 Lantus SUB-Q 20 units QHS PRESTON Administration Insulin Human Lispro 0 unit 11/05/18 11:30 11/07/18 22:55 Humalog SUB-Q Not Given ACHS PRESTON Protocol Levetiracetam 500 mg 11/07/18 15:00 11/07/18 22:50 Keppra PO 500 mg BID PRESTON Administration Magnesium Hydroxide 30 ml 11/04/18 15:13 Milk Of Magnesia PO Q4H PRN Constipation Magnesium Oxide 400 mg 11/06/18 13:00 11/07/18 22:50 Mag-Ox PO 400 mg BID PRESTON Administration Metoclopramide HCl 10 mg 11/04/18 15:13 Reglan PO Q6H PRN Nausea And Vomiting Metoprolol Tartrate 50 mg 11/05/18 10:00 11/07/18 22:55 Lopressor PO 50 mg BID PRESTON Administration Nitroglycerin 0.2 mg 11/06/18 06:00 11/08/18 05:36 Nitro Dur TD 0.2 mg QDAY@0600 PRESTON Administration Ondansetron HCl 4 mg 11/04/18 15:13 Zofran IV Q8H PRN Nausea And Vomiting Ondansetron HCl 4 mg 11/04/18 22:00 11/08/18 05:41 Zofran Odt PO 4 mg Q8HR PRESTON Administration Promethazine HCl 25 mg 11/04/18 15:13 Phenergan GA Q6H PRN Nausea And Vomiting Sertraline HCl 100 mg 11/05/18 10:00 11/07/18 11:53 Zoloft PO 100 mg QDAY PRESTON Administration Sodium Chloride 10 ml 11/04/18 15:13 11/07/18 22:50 Sodium Chloride Flush Syringe 10 Ml IV 10 ml PRN PRN Administration LINE FLUSH
[2018-11-08] MEDS: HumaLOG SUB-Q SCH ×4 (10:10→22:19)
[2018-11-08] MEDS: LOPRESSOR PO SCH ×2 (10:12→22:17)
[2018-11-08] MEDS: ZOLOFT PO SCH (10:12)
[2018-11-08] MEDS: MAG-OX PO SCH ×2 (10:13→22:16)
[2018-11-08] MEDS: KEPPRA PO SCH ×2 (10:13→22:16)
[2018-11-08] MEDS: ASPIRIN PO SCH (10:13)
--- NOTE | 2018-11-08 10:37 | Progress Note ---
Assessment and Plan Echo reviewed - EF 45-50%, impaired relaxation. Pt refuses any aggressive or invasive measures, including HD or ischemic evaluation. Currently stable cardiac status. Pt denies any cardiac complaints. Will sign off. Recommend pt follow up with [facility] within 1-2 weeks of hospital discharge. The patient has been seen in conjunction with Dr. Magallanes who agrees with the assessment and plan of care. - Patient Problems (1) NSTEMI (non-ST elevated myocardial infarction) Current Visit: Yes Status: Acute (2) Altered mental status Current Visit: Yes Status: Acute (3) Seizure Current Visit: Yes Status: Suspected (4) History of CVA (cerebrovascular accident) Current Visit: Yes Status: Chronic (5) Acute on chronic renal failure Current Visit: Yes Status: Chronic (6) HTN (hypertension) Current Visit: Yes Status: Chronic Qualifiers: Hypertension type: essential hypertension Qualified Code(s): I10 - Essential (primary) hypertension (7) COPD (chronic obstructive pulmonary disease) Current Visit: Yes Status: Chronic Qualifiers: Chronic bronchitis type: mixed simple and mucopurulent (8) Nicotine dependence Current Visit: Yes Status: Chronic Qualifiers: Nicotine product type: cigarettes (9) Uncontrolled diabetes mellitus Current Visit: Yes Status: Chronic (10) Hyperlipidemia Current Visit: Yes Status: Chronic Subjective Date of service: 11/08/18 Principal diagnosis: metabolic encephalopathy, hypertension, acute Renal faulure Interval history: pt resting in bed, alert and oriented, no current complaints. tele reviewed - in SR/SB overnight. Objective Last Vital Signs Temp 97.8 F 11/08/18 08:13 Pulse 59 L 11/08/18 08:13 Resp 16 11/08/18 08:13 BP 143/52 11/08/18 08:13 Pulse Ox 93 11/08/18 09:29 - Physical Examination General: No Apparent Distress Neck: Positive: neck supple, trachea midline Cardiac: Positive: Reg Rate and Rhythm, S1/S2 Lungs: Positive: Decreased Breath Sounds Neuro: Positive: Grossly Intact Musculoskeletal: No Pain Extremities: Absent: edema - Labs and Meds Cardiac Enzymes 11/08/18 Range/Units 04:13 AST 19 (5-40) units/L CBC 11/08/18 Range/Units 04:13 WBC 6.3 (4.5-11.0) K/mm3 RBC 3.78 (3.65-5.03) M/mm3 Hgb 11.0 L (11.8-15.2) gm/dl Hct 32.7 L (35.5-45.6) % Plt Count 130 L (140-440) K/mm3 Lymph # 0.9 L (1.2-5.4) K/mm3 [place] # 0.7 (0.0-0.8) K/mm3 Eos # 0.1 (0.0-0.4) K/mm3 Baso # 0.0 (0.0-0.1) K/mm3 Comprehensive Metabolic Panel 11/08/18 Range/Units 04:13 Sodium 140 (137-145) mmol/L Potassium 4.8 (3.6-5.0) mmol/L Chloride 106.3 (98-107) mmol/L Carbon Dioxide 22 (22-30) mmol/L BUN 85 H (9-20) mg/dL Creatinine 4.1 H (0.8-1.5) mg/dL Glucose 72 L (75-100) mg/dL Calcium 9.3 (8.4-10.2) mg/dL AST 19 (5-40) units/L ALT 10 (7-56) units/L Alkaline Phosphatase 78 (35-129) units/L Total Protein 6.9 (6.3-8.2) g/dL Albumin 3.3 L (3.9-5) g/dL - Imaging and Cardiology EKG: report reviewed, image reviewed Echo: report reviewed - Telemetry EKG Rhythm: Sinus Rhythm
--- NOTE | 2018-11-08 14:35 | Progress Note ---
Assessment and Plan Assessment and plan: 78 YO Male with HTN, CHF, CVA, DM, COPD, Dementia, Debility, Nicotine Dependence presents to ED for evaluation of confusion, difficulty speaking, urinary incontinance and unable to stand independently. EMS notified and upon arrival in ED a code stroke was called. Teleneurology consulted and the patient was deemed not to be a candidate for TPA. Pt admitted to telemetry and initiated on CVA protocol. Neurology consulted in ED. CT scan of the brain was unremarkable. unable to do MRI as pt not cooperative. Also noted declining renal function, patient's declined HD. His troponin also elevated but refusing heparin drip or any further workup. Patient's wants SNF with hospice. - Possible CVA (cerebral vascular accident) vs seizure CVA Protocol: CT Brain - nl MRI Brain - was not done as patient was not able to lay quietly on the table despite sedation with Ativan 0.5 mg Neurology concluded possible seizure, cont dilantin and keppra - Metabolic Encephalopathy acute, likely from Uremia cont neuro checks, supportive care. 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 refusing HD if needed - Elevated troponin likely secondary to ARF. Pt has no chest pain Will trend Continue with ASA. Add metoprolol, Atorvastatin and lisinopril, NTG Discussed with and consulted cardiology refusing any further workup - COPD (chronic obstructive pulmonary disease) Supplemental oxygen, nebulizer therapy, NIPPV as clinically indicated, - Diabetes ADA diet, insulin sliding scale, accu check - HTN (hypertension) monitor BP q shift, - Debility PT consulted, Case management consulted for D/C Planning/SNF Placement with hosp ice - Nicotine dependence Tobacco cessation counseling was done - DVT prophylaxis SCD to BLE while in bed, prophylactic heparin - Discussed at length with patient's regarding care plan. She expressed understanding - Patient is DNR. presented DNR papers to the nursing staff. pending d/c to SNF with hospice History Interval history: Patient was seen and evaluated this morning, patient doesn't have any complaints and declined workup and treatment. Hospitalist Physical - Physical exam Narrative exam: Not in cardiopulmonary distress. The patient appeared well nourished and normally developed. Vital signs as documented. Head exam is unremarkable. No scleral icterus . Neck is without jugular venous distension, thyromegaly, or carotid bruits. Lungs are clear to auscultation. Cardiac exam reveals regular rate and Rhythm. Abdominal exam reveals normal bowel sounds. Extremities are nonedematous and both femoral and pedal pulses are normal. 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 No focal weakness. - Constitutional Vitals: Temp Pulse Resp BP Pulse Ox 98.5 F 57 L 16 116/56 97 11/08/18 11:55 11/08/18 11:55 11/08/18 11:55 11/08/18 11:55 11/08/18 11:55 General appearance: Present: mild distress Results - Labs CBC & Chem 7: 11/08/18 04:13 11/08/18 04:13 Labs: Laboratory Last Values WBC 6.3 K/mm3 (4.5-11.0) 11/08/18 04:13 RBC 3.78 M/mm3 (3.65-5.03) 11/08/18 04:13 Hgb 11.0 gm/dl (11.8-15.2) L 11/08/18 04:13 Hct 32.7 % (35.5-45.6) L 11/08/18 04:13 MCV 86 fl (84-94) 11/08/18 04:13 MCH 29 pg (28-32) 11/08/18 04:13 MCHC 34 % (32-34) 11/08/18 04:13 RDW 16.9 % (13.2-15.2) H 11/08/18 04:13 Plt Count 130 K/mm3 (140-440) L 11/08/18 04:13 Lymph % (Auto) 13.8 % (13.4-35.0) 11/08/18 04:13 [place] % (Auto) 10.9 % (0.0-7.3) H 11/08/18 04:13 Eos % (Auto) 0.8 % (0.0-4.3) 11/08/18 04:13 Baso % (Auto) 0.2 % (0.0-1.8) 11/08/18 04:13 Lymph # 0.9 K/mm3 (1.2-5.4) L 11/08/18 04:13 [place] # 0.7 K/mm3 (0.0-0.8) 11/08/18 04:13 Eos # 0.1 K/mm3 (0.0-0.4) 11/08/18 04:13 Baso # 0.0 K/mm3 (0.0-0.1) 11/08/18 04:13 Seg Neutrophils % 74.3 % (40.0-70.0) H 11/08/18 04:13 Seg Neutrophils # 4.7 K/mm3 (1.8-7.7) 11/08/18 04:13 PT 15.5 Sec. (12.2-14.9) H 11/06/18 04:59 INR 1.16 (0.87-1.13) H 11/06/18 04:59 APTT 42.5 Sec. (24.2-36.6) H 11/06/18 04:59 17.7 Sec. (15.1-19.6) 11/04/18 11:04 Heparin Anti-Xa Level < 0.10 U.I./ml (0.3-0.7) L 11/08/18 04:13 VBG pH 7.320 (7.320-7.420) 11/04/18 11:04 Sodium 140 mmol/L (137-145) 11/08/18 04:13 Potassium 4.8 mmol/L (3.6-5.0) 11/08/18 04:13 Chloride 106.3 mmol/L (98-107) 11/08/18 04:13 Carbon Dioxide 22 mmol/L (22-30) 11/08/18 04:13 17 mmol/L 11/08/18 04:13 BUN 85 mg/dL (9-20) H 11/08/18 04:13 4.1 mg/dL (0.8-1.5) H 11/08/18 04:13 Estimated GFR 14 ml/min 11/08/18 04:13 21 % 11/08/18 04:13 Glucose 72 mg/dL (75-100) L 11/08/18 04:13 POC Glucose 192 (70-105) H 11/08/18 12:01 Calcium 9.3 mg/dL (8.4-10.2) 11/08/18 04:13 Phosphorus 3.80 mg/dL (2.5-4.5) 11/08/18 04:13 Magnesium 1.60 mg/dL (1.7-2.3) L 11/06/18 04:59 0.30 mg/dL (0.1-1.2) 11/08/18 04:13 < 0.2 mg/dL (0-0.2) 11/04/18 11:04 AST 19 units/L (5-40) 11/08/18 04:13 ALT 10 units/L (7-56) 11/08/18 04:13 78 units/L (35-129) 11/08/18 04:13 46.0 umol/L (25-60) 11/04/18 11:04 557 units/L (55-170) H 11/06/18 00:31 CK-MB (CK-2) 5.9 ng/mL (0.0-4.0) H 11/06/18 00:31 CK-MB (CK-2) Rel Index 1.0 (0-4) 11/06/18 00:31 0.133 ng/mL (0.00-0.029) H* 11/06/18 00:31 6.9 g/dL (6.3-8.2) 11/08/18 04:13 3.3 g/dL (3.9-5) L 11/08/18 04:13 0.9 % 11/08/18 04:13 Triglycerides 314 mg/dL (2-149) H 11/04/18 11:04 Cholesterol 225 mg/dL (50-199) H 11/04/18 11:04 148 mg/dL (50-130) H 11/04/18 11:04 29 mg/dL (40-59) L 11/04/18 11:04 7.75 % 11/04/18 11:04 PTH Intact 463.3 pg/mL (15-65) H 11/07/18 04:18 Straw (Yellow) 11/04/18 12:21 Clear (Clear) 11/04/18 12:21 6.0 (5.0-7.0) 11/04/18 12:21 Ur Specific [place] 1.010 (1.003-1.030) 11/04/18 12:21 100 mg/dl mg/dL (Negative) 11/04/18 12:21 >=500 mg/dL (Negative) 11/04/18 12:21 Tr mg/dL (Negative) 11/04/18 12:21 Sm (Negative) 11/04/18 12:21 Neg (Negative) 11/04/18 12:21 Neg (Negative) 11/04/18 12:21 < 2.0 mg/dL (<2.0) 11/04/18 12:21 Ur Leukocyte Esterase Neg (Negative) 11/04/18 12:21 < 1.0 /HPF (0.0-6.0) 11/04/18 12:21 < 1.0 /HPF (0.0-6.0) 11/04/18 12:21 151.2 mg/dL (0.1-20.0) H 11/07/18 03:30 45 mmol/L 11/07/18 03:30 Active Medications - Current Medications Current Medications: Generic Name Dose Route Start Last Admin Trade Name Freq PRN Reason Stop Dose Admin Acetaminophen 650 mg 11/04/18 15:13 Tylenol PO Q4H PRN Pain, Mild (1-3) Albuterol 2.5 mg 11/04/18 15:13 Proventil IH Q3HRT PRN Shortness Of Breath Aspirin 325 mg 11/05/18 10:00 11/08/18 10:13 Aspirin PO 325 mg QDAY PRESTON Administration Atorvastatin Calcium 40 mg 11/05/18 22:00 11/07/18 22:50 Lipitor PO 40 mg QHS PRESTON Administration Bisacodyl 10 mg 11/04/18 15:[address] QDAY PRN Constipation Divalproex Sodium 250 mg 11/04/18 22:00 11/08/18 10:[address] PO 250 mg BID PRESTON Administration Sodium Chloride 1,000 mls @ 60 mls/hr 11/06/18 13:00 11/07/18 01:12 Nacl 0.9% 1000 Ml IV 60 mls/hr DIRECT PRESTON Administration Insulin Glargine 20 units 11/04/18 22:00 11/07/18 22:55 Lantus SUB-Q 20 units QHS PRESTON Administration Insulin Human Lispro 0 unit 11/05/18 11:30 11/08/18 10:10 Humalog SUB-Q Not Given ACHS [facility] Protocol Levetiracetam 500 mg 11/07/18 15:00 11/08/18 10:13 Keppra PO 500 mg BID PRESTON Administration Magnesium Hydroxide 30 ml 11/04/18 15:13 Milk Of Magnesia PO Q4H PRN Constipation Magnesium Oxide 400 mg 11/06/18 13:00 11/08/18 10:13 Mag-Ox PO 400 mg BID PRESTON Administration Metoclopramide HCl 10 mg 11/04/18 15:13 Reglan PO Q6H PRN Nausea And Vomiting Metoprolol Tartrate 50 mg 11/05/18 10:00 11/08/18 10:12 Lopressor PO 50 mg BID PRESTON Administration Nitroglycerin 0.2 mg 11/06/18 06:00 11/08/18 05:36 Nitro Dur TD 0.2 mg QDAY@0600 PRESTON Administration Ondansetron HCl 4 mg 11/04/18 15:13 Zofran IV Q8H PRN Nausea And Vomiting Ondansetron HCl 4 mg 11/04/18 22:00 11/08/18 05:41 Zofran Odt PO 4 mg Q8HR PRESTON Administration Promethazine HCl 25 mg 11/04/18 15:[address] Q6H PRN Nausea And Vomiting Sertraline HCl 100 mg 11/05/18 10:00 11/08/18 10:12 Zoloft PO 100 mg QDAY PRESTON Administration Sodium Chloride 10 ml 11/04/18 15:13 11/07/18 22:50 Sodium Chloride Flush Syringe 10 Ml IV 10 ml PRN PRN Administration LINE FLUSH Nutrition/Malnutrition Assess - Dietary Evaluation Nutrition/Malnutrition Findings: Nutrition Notes Start: 11/05/18 16:13 Freq: Status: Active Protocol: Document 11/05/18 16:13 RM (Rec: 11/05/18 16:15 RM [id number]) Nutrition Notes Need for Assessment generated from: drier 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 Pt and pt in room at time of visit. Pt stated that pt has had DM for 20 years and that he does not care about following DM diet education. Nutrition Intervention Revisit per MD consult or patient Sign Off request:
[2018-11-08] MEDS: LANTUS SUB-Q SCH (22:17)
[2018-11-09] MEDS: NITRO DUR TD SCH (06:11)
[2018-11-09] MEDS: ZOFRAN ODT PO SCH ×3 (06:11→21:42)
[2018-11-09 06:51] LABS: Hemoglobin 9.9 gm/dl (11.8-15.2)
[2018-11-09 09:06] LABS: Calcium 8.6 mg/dL (8.4-10.2)
--- NOTE | 2018-11-09 09:32 | Progress Note ---
Assessment and Plan 1. 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 Continue IV fluids. Increase in the creatinine level noted. Renal US negative for hydro. Monitor renal function. Renal prognosis is guarded. Avoid nephrotoxic agents. Meds dosage based on GFR. 2. FEN: IV fluids. Monitor lytes. 3. Simple partial seizure: Followed by Neuro. 4. Suspected CVA. 5. Encephalopathy. 6. HTN. 7. Anemia: POA. Subjective Date of service: 11/09/18 Principal diagnosis: metabolic encephalopathy, hypertension, acute Renal faulure Interval history: Patient was seen and examined at the bedside. at the bedside. Objective - Vital Signs Vital signs: Vital Signs - 12hr 11/08/18 11/08/18 11/09/18 23:52 23:57 04:47 Temperature 98.4 F Pulse Rate 58 L 61 Respiratory 18 18 Rate Blood Pressure 171/68 140/64 O2 Sat by Pulse 100 97 Oximetry 11/09/18 04:48 Temperature 98.5 F Pulse Rate Respiratory Rate Blood Pressure O2 Sat by Pulse Oximetry - General Appearance General appearance: well-developed, appears stated age, other (no distress) EENT: ATNC, PERRL, mucous membranes dry, hearing intact, vision intact Neck: supple Respiratory: Present: Clear to Ascultation Cardiology: regular, S1S2, no murmurs Gastrointestinal: normoactive bowel sounds, no tenderness, no distended, other (condom catheter) Integumentary: no rash, warm and dry Neurologic: no focal deficit, no asterixis, confused, disoriented Musculoskeletal: other (no edema) - Lab 11/11/18 03:59 11/11/18 03:59 Most recent lab results Calcium 8.6 mg/dL (8.4-10.2) 11/09/18 07:52 Phosphorus 3.80 mg/dL (2.5-4.5) 11/08/18 04:13 Magnesium 1.60 mg/dL (1.7-2.3) L 11/06/18 04:59 151.2 mg/dL (0.1-20.0) H 11/07/18 03:30 45 mmol/L 11/07/18 03:30 Medications & Allergies - Medications Allergies/Adverse Reactions: Allergies No Known Allergies Allergy (Unverified 10/16/17 21:44) Home Medications: Home Medications Medication Instructions Recorded Confirmed Last Taken Type Reed Alarcon [Rafael ALARCON] 250 mg PO BID 11/04/18 11/04/18 Unknown History Insulin Glargine,Hum.rec.anlog 20 unit SQ QAM 11/04/18 11/04/18 Unknown History [Lantus Solostar] Ondansetron [Zofran Odt] 4 mg PO Q8HR 11/04/18 11/04/18 Unknown History Sertraline [Zoloft] 100 mg PO QDAY 11/04/18 11/04/18 Unknown History Active Medications: Generic Name Dose Route Start Last Admin Trade Name Freq PRN Reason Stop Dose Admin Acetaminophen 650 mg 11/04/18 15:13 Tylenol PO Q4H PRN Pain, Mild (1-3) Albuterol 2.5 mg 11/04/18 15:13 Proventil IH Q3HRT PRN Shortness Of Breath Aspirin 325 mg 11/05/18 10:00 11/08/18 10:13 Aspirin PO 325 mg QDAY PRESTON Administration Atorvastatin Calcium 40 mg 11/05/18 22:00 11/08/18 22:16 Lipitor PO 40 mg QHS PRESTON Administration Bisacodyl 10 mg 11/04/18 15:13 Dulcolax SC QDAY PRN Constipation Divalproex Sodium 250 mg 11/04/18 22:00 11/08/18 22:16 Rafael Alarcon PO 250 mg BID PRESTON Administration Sodium Chloride 1,000 mls @ 60 mls/hr 11/06/18 13:00 11/07/18 01:12 Nacl 0.9% 1000 Ml IV 60 mls/hr DIRECT PRESTON Administration Insulin Glargine 20 units 11/04/18 22:00 11/08/18 22:17 Lantus SUB-Q 20 units QHS PRESTON Administration Insulin Human Lispro 0 unit 11/05/18 11:30 11/08/18 22:19 Humalog SUB-Q 6 unit ACHS PRESTON Administration Protocol Levetiracetam 500 mg 11/07/18 15:00 11/08/18 22:16 Keppra PO 500 mg BID PRESTON Administration Magnesium Hydroxide 30 ml 11/04/18 15:13 Milk Of Magnesia PO Q4H PRN Constipation Magnesium Oxide 400 mg 11/06/18 13:00 11/08/18 22:16 Mag-Ox PO 400 mg BID PRESTON Administration Metoclopramide HCl 10 mg 11/04/18 15:13 Reglan PO Q6H PRN Nausea And Vomiting Metoprolol Tartrate 50 mg 11/05/18 10:00 11/08/18 22:17 Lopressor PO 50 mg BID PRESTON Administration Nitroglycerin 0.2 mg 11/06/18 06:00 11/09/18 06:11 Nitro Dur TD 0.2 mg QDAY@0600 PRESTON Administration Ondansetron HCl 4 mg 11/04/18 15:13 Zofran IV Q8H PRN Nausea And Vomiting Ondansetron HCl 4 mg 11/04/18 22:00 11/09/18 06:11 Zofran Odt PO 4 mg Q8HR PRESTON Administration Promethazine HCl 25 mg 11/04/18 15:13 Phenergan SC Q6H PRN Nausea And Vomiting Sertraline HCl 100 mg 11/05/18 10:00 11/08/18 10:12 Zoloft PO 100 mg QDAY PRESTON Administration Sodium Chloride 10 ml 11/04/18 15:13 11/07/18 22:50 Sodium Chloride Flush Syringe 10 Ml IV 10 ml PRN PRN Administration LINE FLUSH
[2018-11-09] MEDS: KEPPRA PO SCH ×2 (09:36→21:39)
[2018-11-09] MEDS: ZOLOFT PO SCH (09:36)
[2018-11-09] MEDS: ASPIRIN PO SCH (09:41)
[2018-11-09] MEDS: LOPRESSOR PO SCH ×2 (09:41→21:39)
[2018-11-09] MEDS: MAG-OX PO SCH ×2 (09:41→21:39)
[2018-11-09] MEDS: HumaLOG SUB-Q SCH ×4 (09:43→21:12)
--- NOTE | 2018-11-09 12:11 | Progress Note ---
Assessment and Plan Assessment and plan: 78 YO Male with HTN, CHF, CVA, DM, COPD, Dementia, Debility, Nicotine Dependence presents to ED for evaluation of confusion, difficulty speaking, urinary incontinance and unable to stand independently. EMS notified and upon arrival in ED a code stroke was called. Teleneurology consulted and the patient was deemed not to be a candidate for TPA. Pt admitted to telemetry and initiated on CVA protocol. Neurology consulted in ED. CT scan of the brain was unremarkable. unable to do MRI as pt not cooperative. Also noted declining renal function, patient's declined HD. His troponin also elevated but refusing heparin drip or any further workup. Patient's wants SNF with hospice. - Possible CVA (cerebral vascular accident) vs seizure CVA Protocol: CT Brain - nl MRI Brain - was not done as patient was not able to lay quietly on the table despite sedation with Ativan 0.5 mg Neurology concluded possible seizure, cont dilantin and keppra - Metabolic Encephalopathy acute, likely from Uremia cont neuro checks, supportive care. 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 refusing HD if needed - Elevated troponin likely secondary to ARF. Pt has no chest pain Will trend Continue with ASA. Add metoprolol, Atorvastatin and lisinopril, NTG Discussed with and consulted cardiology refusing any further workup - COPD (chronic obstructive pulmonary disease) Supplemental oxygen, nebulizer therapy, NIPPV as clinically indicated, - Diabetes ADA diet, insulin sliding scale, accu check - HTN (hypertension) monitor BP q shift, - Debility PT consulted, Case management consulted for D/C Planning/SNF Placement with hosp ice - Nicotine dependence Tobacco cessation counseling was done - DVT prophylaxis SCD to BLE while in bed, prophylactic heparin - Discussed at length with patient's regarding care plan. She expressed understanding - Patient is DNR. presented DNR papers to the nursing staff. pending d/c to SNF with hospice History Interval history: Patient was seen and evaluated this morning, patient doesn't have any complaints and declined workup and treatment. No nursing issues reported to me. Hospitalist Physical - Physical exam Narrative exam: Not in cardiopulmonary distress. The patient appeared well nourished and normally developed. Vital signs as documented. Head exam is unremarkable. No scleral icterus . Neck is without jugular venous distension, thyromegaly, or carotid bruits. Lungs are clear to auscultation. Cardiac exam reveals regular rate and Rhythm. Abdominal exam reveals normal bowel sounds. Extremities are nonedematous and both femoral and pedal pulses are normal. 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 No focal weakness. - Constitutional Vitals: Temp Pulse Resp BP Pulse Ox 98.6 F 59 L 16 113/47 97 11/09/18 07:48 11/09/18 09:41 11/09/18 07:48 11/09/18 07:48 11/09/18 07:48 General appearance: Present: mild distress Results - Labs CBC & Chem 7: 11/09/18 06:02 11/09/18 07:52 Labs: Laboratory Last Values WBC 6.3 K/mm3 (4.5-11.0) 11/08/18 04:13 RBC 3.78 M/mm3 (3.65-5.03) 11/08/18 04:13 Hgb 9.9 gm/dl (11.8-15.2) L 11/09/18 06:02 Hct 30.0 % (35.5-45.6) L 11/09/18 06:02 MCV 86 fl (84-94) 11/08/18 04:13 MCH 29 pg (28-32) 11/08/18 04:13 MCHC 34 % (32-34) 11/08/18 04:13 RDW 16.9 % (13.2-15.2) H 11/08/18 04:13 Plt Count 123 K/mm3 (140-440) L 11/09/18 06:02 Lymph % (Auto) 13.8 % (13.4-35.0) 11/08/18 04:13 [place] % (Auto) 10.9 % (0.0-7.3) H 11/08/18 04:13 Eos % (Auto) 0.8 % (0.0-4.3) 11/08/18 04:13 Baso % (Auto) 0.2 % (0.0-1.8) 11/08/18 04:13 Lymph # 0.9 K/mm3 (1.2-5.4) L 11/08/18 04:13 [place] # 0.7 K/mm3 (0.0-0.8) 11/08/18 04:13 Eos # 0.1 K/mm3 (0.0-0.4) 11/08/18 04:13 Baso # 0.0 K/mm3 (0.0-0.1) 11/08/18 04:13 Seg Neutrophils % 74.3 % (40.0-70.0) H 11/08/18 04:13 Seg Neutrophils # 4.7 K/mm3 (1.8-7.7) 11/08/18 04:13 PT 15.5 Sec. (12.2-14.9) H 11/06/18 04:59 INR 1.16 (0.87-1.13) H 11/06/18 04:59 APTT 42.5 Sec. (24.2-36.6) H 11/06/18 04:59 17.7 Sec. (15.1-19.6) 11/04/18 11:04 Heparin Anti-Xa Level < 0.10 U.I./ml (0.3-0.7) L 11/08/18 04:13 VBG pH 7.320 (7.320-7.420) 11/04/18 11:04 Sodium 139 mmol/L (137-145) 11/09/18 07:52 Potassium 4.8 mmol/L (3.6-5.0) 11/09/18 07:52 Chloride 105.3 mmol/L (98-107) 11/09/18 07:52 Carbon Dioxide 23 mmol/L (22-30) 11/09/18 07:52 16 mmol/L 11/09/18 07:52 BUN 90 mg/dL (9-20) H 11/09/18 07:52 4.7 mg/dL (0.8-1.5) H 11/09/18 07:52 Estimated GFR 12 ml/min 11/09/18 07:52 19 % 11/09/18 07:52 Glucose 143 mg/dL (75-100) H 11/09/18 07:52 POC Glucose 177 (70-105) H 11/09/18 07:19 Calcium 8.6 mg/dL (8.4-10.2) 11/09/18 07:52 Phosphorus 3.80 mg/dL (2.5-4.5) 11/08/18 04:13 Magnesium 1.60 mg/dL (1.7-2.3) L 11/06/18 04:59 0.30 mg/dL (0.1-1.2) 11/08/18 04:13 < 0.2 mg/dL (0-0.2) 11/04/18 11:04 AST 19 units/L (5-40) 11/08/18 04:13 ALT 10 units/L (7-56) 11/08/18 04:13 78 units/L (35-129) 11/08/18 04:13 46.0 umol/L (25-60) 11/04/18 11:04 557 units/L (55-170) H 11/06/18 00:31 CK-MB (CK-2) 5.9 ng/mL (0.0-4.0) H 11/06/18 00:31 CK-MB (CK-2) Rel Index 1.0 (0-4) 11/06/18 00:31 0.133 ng/mL (0.00-0.029) H* 11/06/18 00:31 6.9 g/dL (6.3-8.2) 11/08/18 04:13 3.3 g/dL (3.9-5) L 11/08/18 04:13 0.9 % 11/08/18 04:13 Triglycerides 314 mg/dL (2-149) H 11/04/18 11:04 Cholesterol 225 mg/dL (50-199) H 11/04/18 11:04 148 mg/dL (50-130) H 11/04/18 11:04 29 mg/dL (40-59) L 11/04/18 11:04 7.75 % 11/04/18 11:04 PTH Intact 463.3 pg/mL (15-65) H 11/07/18 04:18 Straw (Yellow) 11/04/18 12:21 Clear (Clear) 11/04/18 12:21 6.0 (5.0-7.0) 11/04/18 12:21 Ur Specific [place] 1.010 (1.003-1.030) 11/04/18 12:21 100 mg/dl mg/dL (Negative) 11/04/18 12:21 >=500 mg/dL (Negative) 11/04/18 12:21 Tr mg/dL (Negative) 11/04/18 12:21 Sm (Negative) 11/04/18 12:21 Neg (Negative) 11/04/18 12:21 Neg (Negative) 11/04/18 12:21 < 2.0 mg/dL (<2.0) 11/04/18 12:21 Ur Leukocyte Esterase Neg (Negative) 11/04/18 12:21 < 1.0 /HPF (0.0-6.0) 11/04/18 12:21 < 1.0 /HPF (0.0-6.0) 11/04/18 12:21 151.2 mg/dL (0.1-20.0) H 11/07/18 03:30 45 mmol/L 11/07/18 03:30 Active Medications - Current Medications Current Medications: Generic Name Dose Route Start Last Admin Trade Name Freq PRN Reason Stop Dose Admin Acetaminophen 650 mg 11/04/18 15:13 Tylenol PO Q4H PRN Pain, Mild (1-3) Albuterol 2.5 mg 11/04/18 15:13 Proventil IH Q3HRT PRN Shortness Of Breath Aspirin 325 mg 11/05/18 10:00 11/09/18 09:41 Aspirin PO 325 mg QDAY PRESTON Administration Atorvastatin Calcium 40 mg 11/05/18 22:00 11/08/18 22:16 Lipitor PO 40 mg QHS PRESTON Administration Bisacodyl 10 mg 11/04/18 15:13 Dulcolax DC QDAY PRN Constipation Divalproex Sodium 250 mg 11/04/18 22:00 11/09/18 09:[address] PO 250 mg BID PRESTON Administration Sodium Chloride 1,000 mls @ 60 mls/hr 11/06/18 13:00 11/07/18 01:12 Nacl 0.9% 1000 Ml IV 60 mls/hr DIRECT PRESTON Administration Insulin Glargine 20 units 11/04/18 22:00 11/08/18 22:17 Lantus SUB-Q 20 units QHS PRESTON Administration Insulin Human Lispro 0 unit 11/05/18 11:30 11/09/18 09:43 Humalog SUB-Q 2 unit ACHS PRESTON Administration Protocol Levetiracetam 500 mg 11/07/18 15:00 11/09/18 09:36 Keppra PO 500 mg BID PRESTON Administration Magnesium Hydroxide 30 ml 11/04/18 15:13 Milk Of Magnesia PO Q4H PRN Constipation Magnesium Oxide 400 mg 11/06/18 13:00 11/09/18 09:41 Mag-Ox PO 400 mg BID PRESTON Administration Metoclopramide HCl 10 mg 11/04/18 15:13 Reglan PO Q6H PRN Nausea And Vomiting Metoprolol Tartrate 50 mg 11/05/18 10:00 11/09/18 09:41 Lopressor PO Not Given BID PRESTON Nitroglycerin 0.2 mg 11/06/18 06:00 11/09/18 06:11 Nitro Dur TD 0.2 mg QDAY@0600 PRESTON Administration Ondansetron HCl 4 mg 11/04/18 15:13 Zofran IV Q8H PRN Nausea And Vomiting Ondansetron HCl 4 mg 11/04/18 22:00 11/09/18 06:11 Zofran Odt PO 4 mg Q8HR PRESTON Administration Promethazine HCl 25 mg 11/04/18 15:13 Phenergan DC Q6H PRN Nausea And Vomiting Sertraline HCl 100 mg 11/05/18 10:00 11/09/18 09:36 Zoloft PO 100 mg QDAY PRESTON Administration Sodium Chloride 10 ml 11/04/18 15:13 11/07/18 22:50 Sodium Chloride Flush Syringe 10 Ml IV 10 ml PRN PRN Administration LINE FLUSH Nutrition/Malnutrition Assess - Dietary Evaluation Nutrition/Malnutrition Findings: Nutrition Notes Start: 11/05/18 16:13 Freq: Status: Active Protocol: Document 11/05/18 16:13 RM (Rec: 11/05/18 16:15 RM [id number]) 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 Pt and pt in room at time of visit. Pt stated that pt has had DM for 20 years and that he does not care about following DM diet education. Nutrition Intervention Revisit per consult or patient Sign Off request:
[2018-11-09] MEDS: LANTUS SUB-Q SCH (21:39)
[2018-11-10] MEDS: NITRO DUR TD SCH (05:33)
[2018-11-10] MEDS: ZOFRAN ODT PO SCH ×3 (05:34→22:10)
[2018-11-10 06:09] LABS: Hematocrit 28.2 % (35.5-45.6); Hemoglobin 9.4 gm/dl (11.8-15.2)
[2018-11-10 06:23] LABS: Calcium 8.9 mg/dL (8.4-10.2)
--- NOTE | 2018-11-10 09:43 | Progress Note ---
Assessment and Plan 1. 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 Renal US negative for hydro. Monitor renal function. Renal prognosis is guarded. Avoid nephrotoxic agents. Meds dosage based on GFR. Both patient and refused dialysis. voiced understanding. 2. FEN: Hyperkalemia, Kayexalate ordered. Refused IV fluids. Monitor lytes. 3. Simple partial seizure: Followed by Neuro. 4. Suspected CVA. 5. Encephalopathy. 6. HTN. 7. Anemia: POA. Subjective Date of service: 11/10/18 Principal diagnosis: metabolic encephalopathy, hypertension, acute Renal faulure Interval history: Patient was seen and examined at the bedside. at the bedside. Objective - Vital Signs Vital signs: Vital Signs - 12hr 11/09/18 11/10/18 11/10/18 23:40 04:21 05:33 Temperature 98.4 F 98.4 F Pulse Rate 60 57 L 57 L Respiratory 18 19 Rate Blood Pressure 133/93 169/71 169/71 O2 Sat by Pulse 96 96 Oximetry 11/10/18 07:56 Temperature 98.4 F Pulse Rate Respiratory 18 Rate Blood Pressure 173/67 O2 Sat by Pulse Oximetry - General Appearance General appearance: well-developed, appears stated age, other (no distress) EENT: ATNC, PERRL, mucous membranes dry, hearing intact, vision intact Neck: supple Respiratory: Present: Clear to Ascultation Cardiology: regular, S1S2 Gastrointestinal: normoactive bowel sounds, no tenderness, no distended, other (Condom catheter noted) Integumentary: no rash Neurologic: no focal deficit, no asterixis, confused, disoriented Musculoskeletal: other (no edema) - Lab 11/11/18 03:59 11/11/18 03:59 Most recent lab results Calcium 8.9 mg/dL (8.4-10.2) 11/10/18 04:15 Phosphorus 3.80 mg/dL (2.5-4.5) 11/08/18 04:13 Magnesium 1.60 mg/dL (1.7-2.3) L 11/06/18 04:59 151.2 mg/dL (0.1-20.0) H 11/07/18 03:30 45 mmol/L 11/07/18 03:30 Medications & Allergies - Medications Allergies/Adverse Reactions: Allergies No Known Allergies Allergy (Unverified 10/16/17 21:44) Home Medications: Home Medications Medication Instructions Recorded Confirmed Last Taken Type Reed Alarcon [Rafael ALARCON] 250 mg PO BID 11/04/18 11/04/18 Unknown History Insulin Glargine,Hum.rec.anlog 20 unit SQ QAM 11/04/18 11/04/18 Unknown History [Lantus Solostar] Ondansetron [Zofran Odt] 4 mg PO Q8HR 11/04/18 11/04/18 Unknown History Sertraline [Zoloft] 100 mg PO QDAY 11/04/18 11/04/18 Unknown History Active Medications: Generic Name Dose Route Start Last Admin Trade Name Freq PRN Reason Stop Dose Admin Acetaminophen 650 mg 11/04/18 15:13 Tylenol PO Q4H PRN Pain, Mild (1-3) Albuterol 2.5 mg 11/04/18 15:13 Proventil IH Q3HRT PRN Shortness Of Breath Aspirin 325 mg 11/05/18 10:00 11/09/18 09:41 Aspirin PO 325 mg QDAY [facility] Administration Atorvastatin Calcium 40 mg 11/05/18 22:00 11/09/18 21:39 Lipitor PO 40 mg QHS [facility] Administration Bisacodyl 10 mg 11/04/18 15:13 Dulcolax [place] QDAY PRN Constipation Divalproex Sodium 250 mg 11/04/18 22:00 11/09/18 21:39 Rafael Alarcon PO 250 mg BID [facility] Administration Sodium Chloride 1,000 mls @ 60 mls/hr 11/06/18 13:00 11/07/18 01:12 Nacl 0.9% 1000 Ml IV 60 mls/hr DIRECT [facility] Administration Insulin Glargine 20 units 11/04/18 22:00 11/09/18 21:39 Lantus SUB-Q 20 units QHS [facility] Administration Insulin Human Lispro 0 unit 11/05/18 11:30 11/09/18 21:12 Humalog SUB-Q Not Given ACHS [facility] Protocol Levetiracetam 500 mg 11/07/18 15:00 11/09/18 21:39 Keppra PO 500 mg BID [facility] Administration Magnesium Hydroxide 30 ml 11/04/18 15:13 Milk Of Magnesia PO Q4H PRN Constipation Magnesium Oxide 400 mg 11/06/18 13:00 11/09/18 21:39 Mag-Ox PO 400 mg BID [facility] Administration Metoclopramide HCl 10 mg 11/04/18 15:13 Reglan PO Q6H PRN Nausea And Vomiting Metoprolol Tartrate 50 mg 11/05/18 10:00 11/09/18 21:39 Lopressor PO 50 mg BID [facility] Administration Nitroglycerin 0.2 mg 11/06/18 06:00 11/10/18 05:33 Nitro Dur TD 0.2 mg QDAY@0600 [facility] Administration Ondansetron HCl 4 mg 11/04/18 15:13 Zofran IV Q8H PRN Nausea And Vomiting Ondansetron HCl 4 mg 11/04/18 22:00 11/10/18 05:34 Zofran Odt PO 4 mg Q8HR [facility] Administration Promethazine HCl 25 mg 11/04/18 15:13 Phenergan [place] Q6H PRN Nausea And Vomiting Sertraline HCl 100 mg 11/05/18 10:00 11/09/18 09:36 Zoloft PO 100 mg QDAY [facility] Administration Sodium Chloride 10 ml 11/04/18 15:13 11/07/18 22:50 Sodium Chloride Flush Syringe 10 Ml IV 10 ml PRN PRN Administration LINE FLUSH
[2018-11-10] MEDS: HumaLOG SUB-Q SCH ×4 (09:59→22:46)
[2018-11-10] MEDS: LOPRESSOR PO SCH ×2 (10:00→22:11)
[2018-11-10] MEDS: MAG-OX PO SCH ×2 (10:00→22:11)
[2018-11-10] MEDS: ZOLOFT PO SCH (10:00)
[2018-11-10] MEDS: KEPPRA PO SCH ×2 (10:00→22:10)
[2018-11-10] MEDS: ASPIRIN PO SCH (10:00)
[2018-11-10] MEDS ORDERED: KIONEX PO NR (10:30)
--- NOTE | 2018-11-10 14:54 | Progress Note ---
Assessment and Plan Assessment and plan: 78 YO Male with HTN, CHF, CVA, DM, COPD, Dementia, Debility, Nicotine Dependence presents to ED for evaluation of confusion, difficulty speaking, urinary incontinance and unable to stand independently. EMS notified and upon arrival in ED a code stroke was called. Teleneurology consulted and the patient was deemed not to be a candidate for TPA. Pt admitted to telemetry and initiated on CVA protocol. Neurology consulted in ED. CT scan of the brain was unremarkable. unable to do MRI as pt not cooperative. Also noted declining renal function, patient's declined HD. His troponin also elevated but refusing heparin drip or any further workup. Patient's wants SNF with hospice. - Possible CVA (cerebral vascular accident) vs seizure CVA Protocol: CT Brain - nl MRI Brain - was not done as patient was not able to lay quietly on the table despite sedation with Ativan 0.5 mg Neurology concluded possible seizure, cont dilantin and keppra - Metabolic Encephalopathy acute, likely from Uremia cont neuro checks, supportive care. Treat underlying renal failure - ARF (acute renal failure) with tubular necrosis Continue IVF resuscitation therapy, nephrology consulted, Per pt's , patient had refused to follow up with a Telemetry Technician since he was diagnosed with chronic renal failure and renal function had been deteriorating. refusing HD if needed - Elevated troponin likely secondary to ARF. Pt has no chest pain Will trend Continue with ASA. Add metoprolol, Atorvastatin and lisinopril, NTG Discussed with and consulted cardiology refusing any further workup - COPD (chronic obstructive pulmonary disease) Supplemental oxygen, nebulizer therapy, NIPPV as clinically indicated, - Diabetes ADA diet, insulin sliding scale, accu check - HTN (hypertension) monitor BP q shift, - Debility PT consulted, Case management consulted for D/C Planning/SNF Placement with hosp ice - Nicotine dependence Tobacco cessation counseling was done - DVT prophylaxis SCD to BLE while in bed, prophylactic heparin - Discussed at length with patient's regarding care plan. She expressed understanding - Patient is DNR. presented DNR papers to the nursing staff. pending d/c to SNF with hospice History Interval history: Patient was seen and evaluated this morning, patient doesn't have any complaints and declined workup and treatment. No nursing issues reported to me. Hospitalist Physical - Physical exam Narrative exam: Not in cardiopulmonary distress. The patient appeared well nourished and normally developed. Vital signs as documented. Head exam is unremarkable. No scleral icterus . Neck is without jugular venous distension, thyromegaly, or carotid bruits. Lungs are clear to auscultation. Cardiac exam reveals regular rate and Rhythm. Abdominal exam reveals normal bowel sounds. Extremities are nonedematous and both femoral and pedal pulses are normal. PORTFOLIO LEAD: Alert and oriented 3. No focal weakness. - Constitutional Vitals: Temp Pulse Resp BP Pulse Ox 98.4 F 57 L 16 173/67 96 11/10/18 07:56 11/10/18 05:33 11/10/18 10:59 11/10/18 07:56 11/10/18 04:21 General appearance: Present: mild distress Results - Labs CBC & Chem 7: 11/10/18 04:15 11/10/18 04:15 Labs: Laboratory Last Values WBC 6.3 K/mm3 (4.5-11.0) 11/08/18 04:13 RBC 3.78 M/mm3 (3.65-5.03) 11/08/18 04:13 Hgb 9.4 gm/dl (11.8-15.2) L 11/10/18 04:15 Hct 28.2 % (35.5-45.6) L 11/10/18 04:15 MCV 86 fl (84-94) 11/08/18 04:13 MCH 29 pg (28-32) 11/08/18 04:13 MCHC 34 % (32-34) 11/08/18 04:13 RDW 16.9 % (13.2-15.2) H 11/08/18 04:13 Plt Count 126 K/mm3 (140-440) L 11/10/18 04:15 Lymph % (Auto) 13.8 % (13.4-35.0) 11/08/18 04:13 [place] % (Auto) 10.9 % (0.0-7.3) H 11/08/18 04:13 Eos % (Auto) 0.8 % (0.0-4.3) 11/08/18 04:13 Baso % (Auto) 0.2 % (0.0-1.8) 11/08/18 04:13 Lymph # 0.9 K/mm3 (1.2-5.4) L 11/08/18 04:13 [place] # 0.7 K/mm3 (0.0-0.8) 11/08/18 04:13 Eos # 0.1 K/mm3 (0.0-0.4) 11/08/18 04:13 Baso # 0.0 K/mm3 (0.0-0.1) 11/08/18 04:13 Seg Neutrophils % 74.3 % (40.0-70.0) H 11/08/18 04:13 Seg Neutrophils # 4.7 K/mm3 (1.8-7.7) 11/08/18 04:13 PT 15.5 Sec. (12.2-14.9) H 11/06/18 04:59 INR 1.16 (0.87-1.13) H 11/06/18 04:59 APTT 42.5 Sec. (24.2-36.6) H 11/06/18 04:59 17.7 Sec. (15.1-19.6) 11/04/18 11:04 Heparin Anti-Xa Level < 0.10 U.I./ml (0.3-0.7) L 11/08/18 04:13 VBG pH 7.320 (7.320-7.420) 11/04/18 11:04 Sodium 141 mmol/L (137-145) 11/10/18 04:15 Potassium 5.1 mmol/L (3.6-5.0) H 11/10/18 04:15 Chloride 110.8 mmol/L (98-107) H 11/10/18 04:15 Carbon Dioxide 18 mmol/L (22-30) L 11/10/18 04:15 17 mmol/L 11/10/18 04:15 BUN 84 mg/dL (9-20) H 11/10/18 04:15 4.1 mg/dL (0.8-1.5) H 11/10/18 04:15 Estimated GFR 14 ml/min 11/10/18 04:15 20 % 11/10/18 04:15 Glucose 94 mg/dL (75-100) 11/10/18 04:15 POC Glucose 82 (70-105) 11/10/18 12:45 Calcium 8.9 mg/dL (8.4-10.2) 11/10/18 04:15 Phosphorus 3.80 mg/dL (2.5-4.5) 11/08/18 04:13 Magnesium 1.60 mg/dL (1.7-2.3) L 11/06/18 04:59 0.30 mg/dL (0.1-1.2) 11/08/18 04:13 < 0.2 mg/dL (0-0.2) 11/04/18 11:04 AST 19 units/L (5-40) 11/08/18 04:13 ALT 10 units/L (7-56) 11/08/18 04:13 78 units/L (35-129) 11/08/18 04:13 46.0 umol/L (25-60) 11/04/18 11:04 557 units/L (55-170) H 11/06/18 00:31 CK-MB (CK-2) 5.9 ng/mL (0.0-4.0) H 11/06/18 00:31 CK-MB (CK-2) Rel Index 1.0 (0-4) 11/06/18 00:31 0.133 ng/mL (0.00-0.029) H* 11/06/18 00:31 6.9 g/dL (6.3-8.2) 11/08/18 04:13 3.3 g/dL (3.9-5) L 11/08/18 04:13 0.9 % 11/08/18 04:13 Triglycerides 314 mg/dL (2-149) H 11/04/18 11:04 Cholesterol 225 mg/dL (50-199) H 11/04/18 11:04 148 mg/dL (50-130) H 11/04/18 11:04 29 mg/dL (40-59) L 11/04/18 11:04 7.75 % 11/04/18 11:04 PTH Intact 463.3 pg/mL (15-65) H 11/07/18 04:18 Straw (Yellow) 11/04/18 12:21 Clear (Clear) 11/04/18 12:21 6.0 (5.0-7.0) 11/04/18 12:21 Ur Specific [place] 1.010 (1.003-1.030) 11/04/18 12:21 100 mg/dl mg/dL (Negative) 11/04/18 12:21 >=500 mg/dL (Negative) 11/04/18 12:21 Tr mg/dL (Negative) 11/04/18 12:21 Sm (Negative) 11/04/18 12:21 Neg (Negative) 11/04/18 12:21 Neg (Negative) 11/04/18 12:21 < 2.0 mg/dL (<2.0) 11/04/18 12:21 Ur Leukocyte Esterase Neg (Negative) 11/04/18 12:21 < 1.0 /HPF (0.0-6.0) 11/04/18 12:21 < 1.0 /HPF (0.0-6.0) 11/04/18 12:21 151.2 mg/dL (0.1-20.0) H 11/07/18 03:30 45 mmol/L 11/07/18 03:30 Active Medications - Current Medications Current Medications: Generic Name Dose Route Start Last Admin Trade Name Freq PRN Reason Stop Dose Admin Acetaminophen 650 mg 11/04/18 15:13 Tylenol PO Q4H PRN Pain, Mild (1-3) Albuterol 2.5 mg 11/04/18 15:13 Proventil IH Q3HRT PRN Shortness Of Breath Aspirin 325 mg 11/05/18 10:00 11/10/18 10:00 Aspirin PO Not Given QDAY [facility] Atorvastatin Calcium 40 mg 11/05/18 22:00 11/09/18 21:39 Lipitor PO 40 mg QHS [facility] Administration Bisacodyl 10 mg 11/04/18 15:13 Dulcolax [place] QDAY PRN Constipation Divalproex Sodium 250 mg 11/04/18 22:00 11/10/18 10:[address] PO Not Given BID PRESTON Sodium Chloride 1,000 mls @ 60 mls/hr 11/06/18 13:00 11/07/18 01:12 Nacl 0.9% 1000 Ml IV 60 mls/hr DIRECT [facility] Administration Insulin Glargine 20 units 11/04/18 22:00 11/09/18 21:39 Lantus SUB-Q 20 units QHS [facility] Administration Insulin Human Lispro 0 unit 11/05/18 11:30 11/10/18 12:00 Humalog SUB-Q Not Given ACHS [facility] Protocol Levetiracetam 500 mg 11/07/18 15:00 11/10/18 10:00 Keppra PO Not Given BID [facility] Magnesium Hydroxide 30 ml 11/04/18 15:13 Milk Of Magnesia PO Q4H PRN Constipation Magnesium Oxide 400 mg 11/06/18 13:00 11/10/18 10:00 Mag-Ox PO Not Given BID [facility] Metoclopramide HCl 10 mg 11/04/18 15:13 Reglan PO Q6H PRN Nausea And Vomiting Metoprolol Tartrate 50 mg 11/05/18 10:00 11/10/18 10:00 Lopressor PO Not Given BID [facility] Nitroglycerin 0.2 mg 11/06/18 06:00 11/10/18 05:33 Nitro Dur TD 0.2 mg QDAY@0600 [facility] Administration Ondansetron HCl 4 mg 11/04/18 15:13 Zofran IV Q8H PRN Nausea And Vomiting Ondansetron HCl 4 mg 11/04/18 22:00 11/10/18 14:46 Zofran Odt PO Not Given Q8HR [facility] Promethazine HCl 25 mg 11/04/18 15:13 Phenergan [place] Q6H PRN Nausea And Vomiting Sertraline HCl 100 mg 11/05/18 10:00 11/10/18 10:00 Zoloft PO Not Given QDAY [facility] Sodium Chloride 10 ml 11/04/18 15:13 11/07/18 22:50 Sodium Chloride Flush Syringe 10 Ml IV 10 ml PRN PRN Administration LINE FLUSH Nutrition/Malnutrition Assess - Dietary Evaluation Nutrition/Malnutrition Findings: Nutrition Notes Start: 11/05/18 16:13 Freq: Status: Active Protocol: Document 11/05/18 16:13 RM (Rec: 11/05/18 16:15 RM [id number]) Nutrition Notes Need for Assessment generated from: allergist/immunologist physician Current Diagnosis Acute Kidney Injury,COPD, Diabetes,Heart Failure,Stroke Other Pertinent Diagnosis Dementia, Acute encephalopathy Subjective/Other Information Screened for new onset DM diet education. Pt and pt in room at time of visit. Pt stated that pt has had DM for 20 years and that he does not care about following DM diet education. Nutrition Intervention Revisit per MD consult or patient Sign Off request:
[2018-11-10] MEDS: LANTUS SUB-Q SCH (22:47)
[2018-11-11] MEDS: NITRO DUR TD SCH (05:39)
[2018-11-11] MEDS: ZOFRAN ODT PO SCH ×2 (05:39→13:08)
[2018-11-11 06:38] LABS: Hematocrit 31.2 % (35.5-45.6); Hemoglobin 10.2 gm/dl (11.8-15.2)
[2018-11-11 07:10] LABS: Calcium 8.8 mg/dL (8.4-10.2)
--- NOTE | 2018-11-11 07:59 | Progress Note ---
Assessment and Plan Assessment and plan: 78 YO Male with HTN, CHF, CVA, DM, COPD, Dementia, Debility, Nicotine Dependence presents to ED for evaluation of confusion, difficulty speaking, urinary incontinance and unable to stand independently. EMS notified and upon arrival in ED a code stroke was called. Teleneurology consulted and the patient was deemed not to be a candidate for TPA. Pt admitted to telemetry and initiated on CVA protocol. Neurology consulted in ED. CT scan of the brain was unremarkable. unable to do MRI as pt not cooperative. Also noted declining renal function, patient's declined HD. His troponin also elevated but refusing heparin drip or any further workup. Patient's wants SNF with hospice. - Possible CVA (cerebral vascular accident) vs seizure CVA Protocol: CT Brain - nl MRI Brain - was not done as patient was not able to lay quietly on the table despite sedation with Ativan 0.5 mg Neurology concluded possible seizure, cont dilantin and keppra - Metabolic Encephalopathy acute, likely from Uremia cont neuro checks, supportive care. Currently at baseline - ARF (acute renal failure) with tubular necrosis Continue IVF resuscitation therapy, nephrology consulted, Per pt's , patient had refused to follow up with a Gis Software Engineer since he was diagnosed with chronic renal failure and renal function had been deteriorating. refusing HD if needed - Elevated troponin likely secondary to ARF. Pt has no chest pain Will trend Asked to discontinue all the medications refusing any further workup - COPD (chronic obstructive pulmonary disease) Supplemental oxygen, nebulizer therapy as needed - Diabetes Medications discontinued per patient's request - HTN (hypertension) Medications discontinued per patient's request - Debility PT consulted, Case management consulted for D/C Planning/SNF Placement with hospice - Nicotine dependence Tobacco cessation counseling was done severe hyperkalemia; patient not willing to be treated - DVT prophylaxis SCD to BLE while in bed, prophylactic heparin - Discussed at length with patient's regarding care plan. She expressed understanding - Patient is DNR. presented DNR papers to the nursing staff. pending d/c to SNF with hospice - I have long discussion with the patient and his and they asked me to discontinue all the medications except seizure medications. Patient was alert and oriented. Disposition; transferred to the medical floor. History Interval history: Patient was seen and evaluated this morning, patient doesn't have any complaints and declined workup and treatment. I have long discussion with the patient and his and they want only the seizure medications for comfort, asked her to discontinue all other medications. I will still explained about his hyperkalemia is very high and it may kill him and despite that they declined to take any medications to lower it. Hospitalist Physical - Physical exam Narrative exam: Not in cardiopulmonary distress. The patient appeared well nourished and normally developed. Vital signs as documented. Head exam is unremarkable. No scleral icterus . Neck is without jugular venous distension, thyromegaly, or carotid bruits. Lungs are clear to auscultation. Cardiac exam reveals regular rate and Rhythm. Abdominal exam reveals normal bowel sounds. Extremities are nonedematous and both femoral and pedal pulses are normal. MANAGER SAP: Alert and oriented 3. No focal weakness. - Constitutional Vitals: Temp Pulse Resp BP Pulse Ox 97.9 F 58 L 16 136/44 99 11/11/18 07:19 11/11/18 07:19 11/11/18 07:19 11/11/18 07:19 11/11/18 07:19 General appearance: Present: mild distress Results - Labs CBC & Chem 7: 11/11/18 03:59 11/11/18 03:59 Labs: Laboratory Last Values WBC 6.3 K/mm3 (4.5-11.0) 11/08/18 04:13 RBC 3.78 M/mm3 (3.65-5.03) 11/08/18 04:13 Hgb 10.2 gm/dl (11.8-15.2) L 11/11/18 03:59 Hct 31.2 % (35.5-45.6) L 11/11/18 03:59 MCV 86 fl (84-94) 11/08/18 04:13 MCH 29 pg (28-32) 11/08/18 04:13 MCHC 34 % (32-34) 11/08/18 04:13 RDW 16.9 % (13.2-15.2) H 11/08/18 04:13 Plt Count 156 K/mm3 (140-440) 11/11/18 03:59 Lymph % (Auto) 13.8 % (13.4-35.0) 11/08/18 04:13 [place] % (Auto) 10.9 % (0.0-7.3) H 11/08/18 04:13 Eos % (Auto) 0.8 % (0.0-4.3) 11/08/18 04:13 Baso % (Auto) 0.2 % (0.0-1.8) 11/08/18 04:13 Lymph # 0.9 K/mm3 (1.2-5.4) L 11/08/18 04:13 [place] # 0.7 K/mm3 (0.0-0.8) 11/08/18 04:13 Eos # 0.1 K/mm3 (0.0-0.4) 11/08/18 04:13 Baso # 0.0 K/mm3 (0.0-0.1) 11/08/18 04:13 Seg Neutrophils % 74.3 % (40.0-70.0) H 11/08/18 04:13 Seg Neutrophils # 4.7 K/mm3 (1.8-7.7) 11/08/18 04:13 PT 15.5 Sec. (12.2-14.9) H 11/06/18 04:59 INR 1.16 (0.87-1.13) H 11/06/18 04:59 APTT 42.5 Sec. (24.2-36.6) H 11/06/18 04:59 17.7 Sec. (15.1-19.6) 11/04/18 11:04 Heparin Anti-Xa Level < 0.10 U.I./ml (0.3-0.7) L 11/08/18 04:13 VBG pH 7.320 (7.320-7.420) 11/04/18 11:04 Sodium 145 mmol/L (137-145) 11/11/18 03:59 Potassium 6.5 mmol/L (3.6-5.0) H* D 11/11/18 03:59 Chloride 110.9 mmol/L (98-107) H 11/11/18 03:59 Carbon Dioxide 19 mmol/L (22-30) L 11/11/18 03:59 22 mmol/L 11/11/18 03:59 BUN 75 mg/dL (9-20) H 11/11/18 03:59 3.8 mg/dL (0.8-1.5) H 11/11/18 03:59 Estimated GFR 16 ml/min 11/11/18 03:59 20 % 11/11/18 03:59 Glucose 111 mg/dL (75-100) H 11/11/18 03:59 POC Glucose 85 (70-105) 11/10/18 17:46 Calcium 8.8 mg/dL (8.4-10.2) 11/11/18 03:59 Phosphorus 3.80 mg/dL (2.5-4.5) 11/08/18 04:13 Magnesium 1.60 mg/dL (1.7-2.3) L 11/06/18 04:59 0.30 mg/dL (0.1-1.2) 11/08/18 04:13 < 0.2 mg/dL (0-0.2) 11/04/18 11:04 AST 19 units/L (5-40) 11/08/18 04:13 ALT 10 units/L (7-56) 11/08/18 04:13 78 units/L (35-129) 11/08/18 04:13 46.0 umol/L (25-60) 11/04/18 11:04 557 units/L (55-170) H 11/06/18 00:31 CK-MB (CK-2) 5.9 ng/mL (0.0-4.0) H 11/06/18 00:31 CK-MB (CK-2) Rel Index 1.0 (0-4) 11/06/18 00:31 0.133 ng/mL (0.00-0.029) H* 11/06/18 00:31 6.9 g/dL (6.3-8.2) 11/08/18 04:13 3.3 g/dL (3.9-5) L 11/08/18 04:13 0.9 % 11/08/18 04:13 Triglycerides 314 mg/dL (2-149) H 11/04/18 11:04 Cholesterol 225 mg/dL (50-199) H 11/04/18 11:04 148 mg/dL (50-130) H 11/04/18 11:04 29 mg/dL (40-59) L 11/04/18 11:04 7.75 % 11/04/18 11:04 PTH Intact 463.3 pg/mL (15-65) H 11/07/18 04:18 Straw (Yellow) 11/04/18 12:21 Clear (Clear) 11/04/18 12:21 6.0 (5.0-7.0) 11/04/18 12:21 Ur Specific [place] 1.010 (1.003-1.030) 11/04/18 12:21 100 mg/dl mg/dL (Negative) 11/04/18 12:21 >=500 mg/dL (Negative) 11/04/18 12:21 Tr mg/dL (Negative) 11/04/18 12:21 Sm (Negative) 11/04/18 12:21 Neg (Negative) 11/04/18 12:21 Neg (Negative) 11/04/18 12:21 < 2.0 mg/dL (<2.0) 11/04/18 12:21 Ur Leukocyte Esterase Neg (Negative) 11/04/18 12:21 < 1.0 /HPF (0.0-6.0) 11/04/18 12:21 < 1.0 /HPF (0.0-6.0) 11/04/18 12:21 151.2 mg/dL (0.1-20.0) H 11/07/18 03:30 45 mmol/L 11/07/18 03:30 Active Medications - Current Medications Current Medications: Generic Name Dose Route Start Last Admin Trade Name Freq PRN Reason Stop Dose Admin Acetaminophen 650 mg 11/04/18 15:13 Tylenol PO Q4H PRN Pain, Mild (1-3) Albuterol 2.5 mg 11/04/18 15:13 Proventil IH Q3HRT PRN Shortness Of Breath Aspirin 325 mg 11/05/18 10:00 11/10/18 10:00 Aspirin PO Not Given QDAY [facility] Atorvastatin Calcium 40 mg 11/05/18 22:00 11/10/18 22:10 Lipitor PO 40 mg QHS [facility] Administration Bisacodyl 10 mg 11/04/18 15:13 Dulcolax [place] QDAY PRN Constipation Divalproex Sodium 250 mg 11/04/18 22:00 11/10/18 22:[address] PO 250 mg BID [facility] Administration Sodium Chloride 1,000 mls @ 60 mls/hr 11/06/18 13:00 11/07/18 01:12 Nacl 0.9% 1000 Ml IV 60 mls/hr DIRECT [facility] Administration Insulin Glargine 20 units 11/04/18 22:00 11/10/18 22:47 Lantus SUB-Q Not Given QHS [facility] Insulin Human Lispro 0 unit 11/05/18 11:30 11/10/18 22:46 Humalog SUB-Q Not Given ACHS [facility] Protocol Levetiracetam 500 mg 11/07/18 15:00 11/10/18 22:10 Keppra PO 500 mg BID [facility] Administration Magnesium Hydroxide 30 ml 11/04/18 15:13 Milk Of Magnesia PO Q4H PRN Constipation Magnesium Oxide 400 mg 11/06/18 13:00 11/10/18 22:11 Mag-Ox PO 400 mg BID [facility] Administration Metoclopramide HCl 10 mg 11/04/18 15:13 Reglan PO Q6H PRN Nausea And Vomiting Metoprolol Tartrate 50 mg 11/05/18 10:00 11/10/18 22:11 Lopressor PO 50 mg BID [facility] Administration Nitroglycerin 0.2 mg 11/06/18 06:00 11/11/18 05:39 Nitro Dur TD 0.2 mg QDAY@0600 [facility] Administration Ondansetron HCl 4 mg 11/04/18 15:13 Zofran IV Q8H PRN Nausea And Vomiting Ondansetron HCl 4 mg 11/04/18 22:00 11/11/18 05:39 Zofran Odt PO 4 mg Q8HR [facility] Administration Promethazine HCl 25 mg 11/04/18 15:13 Phenergan [place] Q6H PRN Nausea And Vomiting Sertraline HCl 100 mg 11/05/18 10:00 11/10/18 10:00 Zoloft PO Not Given QDAY [facility] Sodium Chloride 10 ml 11/04/18 15:13 11/07/18 22:50 Sodium Chloride Flush Syringe 10 Ml IV 10 ml PRN PRN Administration LINE FLUSH Nutrition/Malnutrition Assess - Dietary Evaluation Nutrition/Malnutrition Findings: Nutrition Notes Start: 11/05/18 16:13 Freq: Status: Active Protocol: Document 11/05/18 16:13 RM (Rec: 11/05/18 16:15 RM [id number]) Nutrition Notes Need for Assessment generated from: nuclear reactor engineer Current Diagnosis Acute Kidney Injury,COPD, Diabetes,Heart Failure,Stroke Other Pertinent Diagnosis Dementia, Acute encephalopathy Subjective/Other Information Screened for new onset DM diet education. Pt and pt in room at time of visit. Pt stated that pt has had DM for 20 years and that he does not care about following DM diet education. Nutrition Intervention Revisit per MD consult or patient Sign Off request:
[2018-11-11] MEDS: KEPPRA PO SCH ×2 (09:25→22:48)
[2018-11-11] MEDS: MAG-OX PO SCH (09:26)
[2018-11-11] MEDS ORDERED: HumuLIN R IV ONE (09:54)
[2018-11-11] MEDS ORDERED: D50W (25GM) Syringe IV ONE (09:54)
[2018-11-11] MEDS ORDERED: CALCIUM GLUCONATE 2,000 MG in NACL 0.9% 100 ML IV ONE (09:55)
[2018-11-11] MEDS: KIONEX PO SCH ×2 (13:08→14:59)
--- NOTE | 2018-11-11 14:03 | Progress Note ---
Assessment and Plan 1. 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 Renal US negative for hydro. Monitor renal function. Renal prognosis is guarded. Avoid nephrotoxic agents. Meds dosage based on GFR. No dialysis per patient and his . 2. FEN: Hyperkalemia, refused meds. Monitor lytes. 3. Simple partial seizure. 4. Suspected CVA. 5. Encephalopathy. 6. HTN. 7. Anemia: POA. Subjective Date of service: 11/11/18 Principal diagnosis: metabolic encephalopathy, hypertension, acute Renal faulure Interval history: Patient was seen and examined at the bedside. at the bedside. Objective - Vital Signs Vital signs: Vital Signs - 12hr 11/11/18 11/11/18 11/11/18 04:25 07:19 09:58 Temperature 98.7 F 97.9 F 98.2 F Pulse Rate 57 L 58 L 63 Respiratory 18 16 20 Rate Blood Pressure 187/100 136/44 150/62 O2 Sat by Pulse 99 99 96 Oximetry 11/11/18 13:21 Temperature 98.1 F Pulse Rate 56 L Respiratory 20 Rate Blood Pressure 183/66 O2 Sat by Pulse 96 Oximetry - General Appearance General appearance: well-developed, appears stated age, other (no distress) EENT: ATNC, PERRL, mucous membranes dry, hearing intact, vision intact Neck: supple Respiratory: Present: Clear to Ascultation Cardiology: regular, S1S2, no murmurs Gastrointestinal: normoactive bowel sounds, no tenderness, no distended, other (condom catheter noted) Integumentary: no rash Neurologic: no focal deficit, no asterixis, confused, disoriented Musculoskeletal: other (no edema) - Lab 11/11/18 03:59 11/11/18 03:59 Most recent lab results Calcium 8.8 mg/dL (8.4-10.2) 11/11/18 03:59 Phosphorus 3.80 mg/dL (2.5-4.5) 11/08/18 04:13 Magnesium 1.60 mg/dL (1.7-2.3) L 11/06/18 04:59 151.2 mg/dL (0.1-20.0) H 11/07/18 03:30 45 mmol/L 11/07/18 03:30 Medications & Allergies - Medications Allergies/Adverse Reactions: Allergies No Known Allergies Allergy (Unverified 10/16/17 21:44) Home Medications: Home Medications Medication Instructions Recorded Confirmed Last Taken Type Divalproex Dr [Rafael BROUSSARD] 250 mg PO BID 11/04/18 11/04/18 Unknown History Insulin Glargine,Hum.rec.anlog 20 unit SQ QAM 11/04/18 11/04/18 Unknown History [Lantus Solostar] Ondansetron [Zofran Odt] 4 mg PO Q8HR 11/04/18 11/04/18 Unknown History Sertraline [Zoloft] 100 mg PO QDAY 11/04/18 11/04/18 Unknown History Active Medications: Generic Name Dose Route Start Last Admin Trade Name Freq PRN Reason Stop Dose Admin Acetaminophen 650 mg 11/04/18 15:13 Tylenol PO Q4H PRN Pain, Mild (1-3) Albuterol 2.5 mg 11/04/18 15:13 Proventil IH Q3HRT PRN Shortness Of Breath Bisacodyl 10 mg 11/04/18 15:[address] QDAY PRN Constipation Divalproex Sodium 250 mg 11/04/18 22:00 11/11/18 09:[address] PO 250 mg BID PRESTON Administration Sodium Chloride 1,000 mls @ 60 mls/hr 11/06/18 13:00 11/07/18 01:12 Nacl 0.9% 1000 Ml IV 60 mls/hr DIRECT PRESTON Administration Levetiracetam 500 mg 11/07/18 15:00 11/11/18 09:25 Keppra PO 500 mg BID PRESTON Administration Magnesium Hydroxide 30 ml 11/04/18 15:13 Milk Of Magnesia PO Q4H PRN Constipation Magnesium Oxide 400 mg 11/06/18 13:00 11/11/18 09:26 Mag-Ox PO Not Given BID PRESTON Ondansetron HCl 4 mg 11/04/18 15:13 Zofran IV Q8H PRN Nausea And Vomiting Ondansetron HCl 4 mg 11/04/18 22:00 11/11/18 13:08 Zofran Odt PO Not Given Q8HR PRESTON Promethazine HCl 25 mg 11/04/18 15:[address] Q6H PRN Nausea And Vomiting Sodium Chloride 10 ml 11/04/18 15:13 11/07/18 22:50 Sodium Chloride Flush Syringe 10 Ml IV 10 ml PRN PRN Administration LINE FLUSH
[2018-11-11] MEDS: SODIUM CHLORIDE FLUSH SYRINGE 10 ML IV PRN (22:49)
[2018-11-12] MEDS: KEPPRA PO SCH ×2 (10:17→21:25)
[2018-11-12] MEDS: MORPHINE IV PRN (10:24)
--- NOTE | 2018-11-12 16:22 | Progress Note ---
Assessment and Plan 1. 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 Renal US negative for hydro. Renal prognosis is guarded. Avoid nephrotoxic agents. Meds dosage based on GFR. No dialysis and no lab draw per patient and his . 2. FEN: Hyperkalemia, refused meds. Monitor lytes. 3. Simple partial seizure. 4. Suspected CVA. 5. Encephalopathy. 6. HTN. 7. Anemia: POA. Subjective Date of service: 11/12/18 Principal diagnosis: metabolic encephalopathy, hypertension, acute Renal faulure Interval history: Patient was seen and examined at the bedside. at the bedside. Objective - Vital Signs Vital signs: Vital Signs - 12hr 11/12/18 11/12/18 11/12/18 07:50 08:53 13:00 Temperature 98.0 F 97.8 F Pulse Rate 61 60 Respiratory 20 16 20 Rate Blood Pressure 166/57 185/72 O2 Sat by Pulse 96 94 Oximetry - General Appearance General appearance: well-developed, appears stated age, other (no distress) EENT: ATNC, PERRL, mucous membranes dry, hearing intact, vision intact Neck: supple Respiratory: Present: Clear to Ascultation Cardiology: regular, S1S2, no murmurs Gastrointestinal: normoactive bowel sounds, no tenderness, no distended Integumentary: no rash, warm and dry Neurologic: no focal deficit, no asterixis, confused, disoriented Musculoskeletal: other (no edema) - Lab 11/11/18 03:59 11/11/18 03:59 Most recent lab results Calcium 8.8 mg/dL (8.4-10.2) 11/11/18 03:59 Phosphorus 3.80 mg/dL (2.5-4.5) 11/08/18 04:13 Magnesium 2.30 mg/dL (1.7-2.3) 11/11/18 13:06 151.2 mg/dL (0.1-20.0) H 11/07/18 03:30 45 mmol/L 11/07/18 03:30 Medications & Allergies - Medications Allergies/Adverse Reactions: Allergies No Known Allergies Allergy (Unverified 10/16/17 21:44) Home Medications: Home Medications Medication Instructions Recorded Confirmed Last Taken Type Divalproex Dr [Depakote Dr] 250 mg PO BID 11/04/18 11/04/18 Unknown History Sertraline [Zoloft] 100 mg PO QDAY 11/04/18 11/04/18 Unknown History Magnesium Hydroxide [Milk of 30 ml PO Q4H PRN oral.liqd 11/13/18 Unknown Rx Magnesia] Morphine Concentrate [MORPHINE 10 mg PO Q4HR PRN #1 oralsyr 11/13/18 Unknown Rx Conc 20 MG/ML ORAL LIQ] Promethazine [Phenergan SUPPOS] 25 mg [place] Q6H PRN supp.rect 11/13/18 Unknown Rx levETIRAcetam [Keppra TAB] 500 mg PO BID tablet 11/13/18 Unknown Rx Active Medications: Generic Name Dose Route Start Last Admin Trade Name Freq PRN Reason Stop Dose Admin Acetaminophen 650 mg 11/04/18 15:13 Tylenol PO Q4H PRN Pain, Mild (1-3) Albuterol 2.5 mg 11/04/18 15:13 Proventil IH Q3HRT PRN Shortness Of Breath Bisacodyl 10 mg 11/04/18 15:13 Dulcolax [place] QDAY PRN Constipation Divalproex Sodium 250 mg 11/04/18 22:00 11/12/18 10:[address] PO 250 mg BID PRESTON Administration Levetiracetam 500 mg 11/07/18 15:00 11/12/18 10:17 Keppra PO 500 mg BID PRESTON Administration Magnesium Hydroxide 30 ml 11/04/18 15:13 Milk Of Magnesia PO Q4H PRN Constipation Morphine Sulfate 2 mg 11/12/18 09:11 11/12/18 10:24 Morphine IV 2 mg Q3H PRN Administration Pain, Moderate (4-6) Ondansetron HCl 4 mg 11/04/18 15:13 Zofran IV Q8H PRN Nausea And Vomiting Promethazine HCl 25 mg 11/04/18 15:13 Phenergan [place] Q6H PRN Nausea And Vomiting Sodium Chloride 10 ml 11/04/18 15:13 11/11/18 22:49 Sodium Chloride Flush Syringe 10 Ml IV 10 ml PRN PRN Administration LINE FLUSH
[2018-11-12] MEDS: APRESOLINE IV PRN (21:28)
[2018-11-13] MEDS: MORPHINE IV PRN (00:26)
[2018-11-13] MEDS: APRESOLINE IV PRN ×2 (02:46→10:00)
--- NOTE | 2018-11-13 07:33 | Progress Note ---
Assessment and Plan Assessment and plan: 78 YO Male with HTN, CHF, CVA, DM, COPD, Dementia, Debility, Nicotine Dependence presents to ED for evaluation of confusion, difficulty speaking, urinary incontinance and unable to stand independently. EMS notified and upon arrival in ED a code stroke was called. Teleneurology consulted and the patient was deemed not to be a candidate for TPA. Pt admitted to telemetry and initiated on CVA protocol. Neurology consulted in ED. CT scan of the brain was unremarkable. unable to do MRI as pt not cooperative. Also noted declining renal function, patient's declined HD. His troponin also elevated but refusing heparin drip or any further workup. Patient's wants SNF with hospice. - Possible CVA (cerebral vascular accident) vs seizure CVA Protocol: CT Brain - nl MRI Brain - was not done as patient was not able to lay quietly on the table despite sedation with Ativan 0.5 mg Neurology concluded possible seizure, cont dilantin and keppra - Metabolic Encephalopathy acute, likely from Uremia cont neuro checks, supportive care. Currently at baseline - ARF (acute renal failure) with tubular necrosis Continue IVF resuscitation therapy, nephrology consulted, Per pt's , patient had refused to follow up with a Doctor Chiropractic since he was diagnosed with chronic renal failure and renal function had been deteriorating. refusing HD if needed - Elevated troponin likely secondary to ARF. Pt has no chest pain Will trend Asked to discontinue all the medications refusing any further workup - COPD (chronic obstructive pulmonary disease) Supplemental oxygen, nebulizer therapy as needed - Diabetes Medications discontinued per patient's request - HTN (hypertension) Medications discontinued per patient's request - Debility PT consulted, Case management consulted for D/C Planning/SNF Placement with hospice - Nicotine dependence Tobacco cessation counseling was done severe hyperkalemia; patient not willing to be treated - DVT prophylaxis SCD to BLE while in bed, prophylactic heparin - Discussed at length with patient's regarding care plan. She expressed understanding - Patient is DNR. presented DNR papers to the nursing staff. pending d/c to SNF with hospice - I have long discussion with the patient and his and they asked me to discontinue all the medications except seizure medications. Patient was alert and oriented. Patient will go to [facility] on Wednesday. Disposition; transferred to the medical floor. Hospitalist Physical - Constitutional Vitals: Temp Pulse Resp BP Pulse Ox 98.9 F 73 17 158/69 97 11/13/18 02:36 11/13/18 02:46 11/13/18 02:36 11/13/18 06:40 11/13/18 02:36 General appearance: Present: mild distress Results - Labs CBC & Chem 7: 11/11/18 03:59 11/11/18 03:59 Labs: Laboratory Last Values WBC 6.3 K/mm3 (4.5-11.0) 11/08/18 04:13 RBC 3.78 M/mm3 (3.65-5.03) 11/08/18 04:13 Hgb 10.2 gm/dl (11.8-15.2) L 11/11/18 03:59 Hct 31.2 % (35.5-45.6) L 11/11/18 03:59 MCV 86 fl (84-94) 11/08/18 04:13 MCH 29 pg (28-32) 11/08/18 04:13 MCHC 34 % (32-34) 11/08/18 04:13 RDW 16.9 % (13.2-15.2) H 11/08/18 04:13 Plt Count 156 K/mm3 (140-440) 11/11/18 03:59 Lymph % (Auto) 13.8 % (13.4-35.0) 11/08/18 04:13 [place] % (Auto) 10.9 % (0.0-7.3) H 11/08/18 04:13 Eos % (Auto) 0.8 % (0.0-4.3) 11/08/18 04:13 Baso % (Auto) 0.2 % (0.0-1.8) 11/08/18 04:13 Lymph # 0.9 K/mm3 (1.2-5.4) L 11/08/18 04:13 [place] # 0.7 K/mm3 (0.0-0.8) 11/08/18 04:13 Eos # 0.1 K/mm3 (0.0-0.4) 11/08/18 04:13 Baso # 0.0 K/mm3 (0.0-0.1) 11/08/18 04:13 Seg Neutrophils % 74.3 % (40.0-70.0) H 11/08/18 04:13 Seg Neutrophils # 4.7 K/mm3 (1.8-7.7) 11/08/18 04:13 PT 15.5 Sec. (12.2-14.9) H 11/06/18 04:59 INR 1.16 (0.87-1.13) H 11/06/18 04:59 APTT 42.5 Sec. (24.2-36.6) H 11/06/18 04:59 17.7 Sec. (15.1-19.6) 11/04/18 11:04 Heparin Anti-Xa Level < 0.10 U.I./ml (0.3-0.7) L 11/08/18 04:13 VBG pH 7.320 (7.320-7.420) 11/04/18 11:04 Sodium 145 mmol/L (137-145) 11/11/18 03:59 Potassium 6.5 mmol/L (3.6-5.0) H* D 11/11/18 03:59 Chloride 110.9 mmol/L (98-107) H 11/11/18 03:59 Carbon Dioxide 19 mmol/L (22-30) L 11/11/18 03:59 22 mmol/L 11/11/18 03:59 BUN 75 mg/dL (9-20) H 11/11/18 03:59 3.8 mg/dL (0.8-1.5) H 11/11/18 03:59 Estimated GFR 16 ml/min 11/11/18 03:59 20 % 11/11/18 03:59 Glucose 111 mg/dL (75-100) H 11/11/18 03:59 POC Glucose 262 (70-105) H 11/11/18 09:26 Calcium 8.8 mg/dL (8.4-10.2) 11/11/18 03:59 Phosphorus 3.80 mg/dL (2.5-4.5) 11/08/18 04:13 Magnesium 2.30 mg/dL (1.7-2.3) 11/11/18 13:06 0.30 mg/dL (0.1-1.2) 11/08/18 04:13 < 0.2 mg/dL (0-0.2) 11/04/18 11:04 AST 19 units/L (5-40) 11/08/18 04:13 ALT 10 units/L (7-56) 11/08/18 04:13 78 units/L (35-129) 11/08/18 04:13 46.0 umol/L (25-60) 11/04/18 11:04 557 units/L (55-170) H 11/06/18 00:31 CK-MB (CK-2) 5.9 ng/mL (0.0-4.0) H 11/06/18 00:31 CK-MB (CK-2) Rel Index 1.0 (0-4) 11/06/18 00:31 0.133 ng/mL (0.00-0.029) H* 11/06/18 00:31 6.9 g/dL (6.3-8.2) 11/08/18 04:13 3.3 g/dL (3.9-5) L 11/08/18 04:13 0.9 % 11/08/18 04:13 Triglycerides 314 mg/dL (2-149) H 11/04/18 11:04 Cholesterol 225 mg/dL (50-199) H 11/04/18 11:04 148 mg/dL (50-130) H 11/04/18 11:04 29 mg/dL (40-59) L 11/04/18 11:04 7.75 % 11/04/18 11:04 PTH Intact 463.3 pg/mL (15-65) H 11/07/18 04:18 Straw (Yellow) 11/04/18 12:21 Clear (Clear) 11/04/18 12:21 6.0 (5.0-7.0) 11/04/18 12:21 Ur Specific [place] 1.010 (1.003-1.030) 11/04/18 12:21 100 mg/dl mg/dL (Negative) 11/04/18 12:21 >=500 mg/dL (Negative) 11/04/18 12:21 Tr mg/dL (Negative) 11/04/18 12:21 Sm (Negative) 11/04/18 12:21 Neg (Negative) 11/04/18 12:21 Neg (Negative) 11/04/18 12:21 < 2.0 mg/dL (<2.0) 11/04/18 12:21 Ur Leukocyte Esterase Neg (Negative) 11/04/18 12:21 < 1.0 /HPF (0.0-6.0) 11/04/18 12:21 < 1.0 /HPF (0.0-6.0) 11/04/18 12:21 151.2 mg/dL (0.1-20.0) H 11/07/18 03:30 45 mmol/L 11/07/18 03:30 Active Medications - Current Medications Current Medications: Generic Name Dose Route Start Last Admin Trade Name Freq PRN Reason Stop Dose Admin Acetaminophen 650 mg 11/04/18 15:13 Tylenol PO Q4H PRN Pain, Mild (1-3) Albuterol 2.5 mg 11/04/18 15:13 Proventil IH Q3HRT PRN Shortness Of Breath Bisacodyl 10 mg 11/04/18 15:13 Dulcolax [place] QDAY PRN Constipation Divalproex Sodium 250 mg 11/04/18 22:00 11/12/18 21:[address] PO 250 mg BID PRESTON Administration Hydralazine HCl 10 mg 11/12/18 21:10 11/13/18 02:46 Apresoline IV 10 mg Q4HR PRN Administration SBP > 150 Levetiracetam 500 mg 11/07/18 15:00 11/12/18 21:25 Keppra PO 500 mg BID PRESTON Administration Magnesium Hydroxide 30 ml 11/04/18 15:13 Milk Of Magnesia PO Q4H PRN Constipation Morphine Sulfate 2 mg 11/12/18 09:11 11/13/18 00:26 Morphine IV 2 mg Q3H PRN Administration Pain, Moderate (4-6) Ondansetron HCl 4 mg 11/04/18 15:13 Zofran IV Q8H PRN Nausea And Vomiting Promethazine HCl 25 mg 11/04/18 15:13 Phenergan [place] Q6H PRN Nausea And Vomiting Sodium Chloride 10 ml 11/04/18 15:13 11/11/18 22:49 Sodium Chloride Flush Syringe 10 Ml IV 10 ml PRN PRN Administration LINE FLUSH Nutrition/Malnutrition Assess - Dietary Evaluation Nutrition/Malnutrition Findings: Nutrition Notes Start: 11/05/18 16:13 Freq: Status: Active Protocol: Document 11/11/18 15:45 RM (Rec: 11/11/18 15:49 RM [id number]) Nutrition Notes Need for Assessment generated from: LOS Initial or Follow up Brief Note Current Diagnosis Acute Kidney Injury,COPD, Diabetes,Heart Failure,Stroke Other Pertinent Diagnosis Dementia, Acute encephalopathy Current Diet Mech soft w/nectar thick liquid Labs/Tests K 6.5 Pertinent Medications Reviewed Height 5 ft 8 in Weight 97.4 kg [place] Body Weight (kg) 70.00 BMI 32.6 Subjective/Other Information Screened for LOS. Pt and pt in room at time of visit. Pt stated that pt eats none of or bites of his meals. Declined regular ONS d/t pt disliking taste. Stated that pt is planned to go on hospice. Burn Absent Trauma Absent Nutrition Intervention Add Supplement/Snack (indicate name/kcal Ensure Clear 1 daily /protein ) Provides kCal: 240 Provides Protein (gm) 8 Follow-Up By: 11/16/18 Additional Comments Follow for POC
[2018-11-13 09:45] VITALS: BP 182/83
[2018-11-13] MEDS: KEPPRA PO SCH (09:49)
--- NOTE | 2018-11-13 11:52 | Discharge Summary ---
Providers - Providers Date of Admission: 11/04/18 15:13 Attending physician: SAMMY FOOTE MD 11/04/18 15:13 Consult to Case Management [CONS] Routine Services Needed at Discharge: Other Notified:: case management Additional Physician Instructions: SNF with hospice placement Occupational Therapy Evaluate and Treat [CONS] Routine Comment: Reason For Exam: Neuro deficits Physical Therapy Evaluation and Treat [CONS] Routine Comment: Reason For Exam: Neuro deficits 11/04/18 15:22 Consult to Physician [CONS] Routine Comment: Consulting Provider: ROMERO CHOE Physician Instructions: Reason For Exam: cva 11/04/18 18:35 Consult to Physician [CONS] Routine Comment: Consulting Provider: EARLENE VALDERRAMA Physician Instructions: Reason For Exam: ARF 11/05/18 10:27 Speech Therapy Evaluation and Treat [CONS] Routine Reason For Exam: cough when drinking thin liquids 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 EMS notified and upon arrival in ED a code stroke was called. Teleneurology consulted and the patient was deemed not to be a candidate for TPA. Pt admitted to telemetry and initiated on CVA protocol. Neurology consulted in ED. CT scan of the brain was unremarkable. unable to do MRI as pt not cooperative. Also noted declining renal function, patient's declined HD. His troponin also elevated but refusing heparin drip or any further workup. Patient's wants SNF with hospice. - Possible CVA (cerebral vascular accident) vs seizure CVA Protocol: CT Brain - nl MRI Brain - was not done as patient was not able to lay quietly on the table despite sedation with Ativan 0.5 mg Neurology concluded possible seizure, cont dilantin and keppra - Metabolic Encephalopathy acute, likely from Uremia cont neuro checks, supportive care. Currently at baseline - ARF (acute renal failure) with tubular necrosis Continue IVF resuscitation therapy, nephrology consulted, Per pt's , patient had refused to follow up with a [employer] Outreach Specialist since he was diagnosed with chronic renal failure and renal function had been deteriorating. refusing HD if needed had hyperkalemia and refused further labs or rx - Elevated troponin likely secondary to ARF. Pt has no chest pain Asked to discontinue all the medications refusing any further workup - COPD (chronic obstructive pulmonary disease) Supplemental oxygen, nebulizer therapy as needed - Diabetes Medications discontinued per patient's request - HTN (hypertension) Medications discontinued per patient's request seizure disorder, cont AEDs - Debility PT consulted, Case management consulted for D/C Planning/SNF Placement with hospice - Nicotine dependence Tobacco cessation counseling was done severe hyperkalemia; patient not willing to be treated - DVT prophylaxis SCD to BLE while in bed, prophylactic heparin - Discussed at length with patient's regarding care plan. She expressed understanding , I have long discussion with the patient and his and they asked me to discontinue all the medications except seizure medications. Patient was alert and oriented. - Patient is DNR. presented DNR papers to the nursing staff. He was made DNR and dc to hospice per patient and request - Disposition: [facility] ([facility]) Time spent for discharge: 33 mins Core Measure Documentation - Palliative Care Palliative Care/ Comfort Measures: Hospice Care - Core Measures Any of the following diagnoses?: none Exam - Constitutional Vitals: Temp Pulse Resp BP Pulse Ox 98.0 F 76 17 182/83 94 11/13/18 08:24 11/13/18 08:24 11/13/18 02:36 11/13/18 08:24 11/13/18 08:24 General appearance: Present: no acute distress, well-nourished - EENT Eyes: Present: PERRL ENT: hearing intact, clear oral mucosa - Neck Neck: Present: supple, normal ROM - Respiratory Respiratory effort: normal Respiratory: bilateral: CTA - Cardiovascular Heart Sounds: Present: S1 & S2. Absent: rub, click - Extremities Extremities: pulses symmetrical, No edema Peripheral Pulses: within normal limits - Abdominal General gastrointestinal: Present: soft, non-tender, non-distended, normal bowel sounds Male genitourinary: Present: normal - Integumentary Integumentary: Present: clear, warm, dry - Musculoskeletal Musculoskeletal: gait normal, strength equal bilaterally - Psychiatric Psychiatric: appropriate mood/affect, intact judgment & insight - Neurologic Neurologic: CNII-XII intact, moves all extremities Plan Follow up with: PRIMARY CARE,MD [Primary Care Provider] - 3-5 Days Prescriptions: Morphine Concentrate [MORPHINE Conc 20 MG/ML ORAL LIQ] 10 mg PO Q4HR PRN #1 oralsyr PRN Reason: Pain, Mild (1-3)
--- NOTE | 2018-11-13 13:01 | Progress Note ---
Assessment and Plan 1. 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 Renal US negative for hydro. Renal prognosis is guarded. Avoid nephrotoxic agents. Meds dosage based on GFR. No dialysis and no lab draw per patient and his . 2. FEN: Hyperkalemia, refused meds. 3. Simple partial seizure. 4. Suspected CVA. 5. Encephalopathy. 6. HTN. 7. Anemia: POA. Patient is being discharged to inpatient hospice. Will sign off. Subjective Date of service: 11/13/18 Principal diagnosis: metabolic encephalopathy, hypertension, acute Renal faulure Interval history: Patient was seen and examined at the bedside. Decreased appetite. at the bedside. Objective - Vital Signs Vital signs: Vital Signs - 12hr 11/13/18 11/13/18 11/13/18 02:36 02:46 04:18 Temperature 98.9 F Pulse Rate 73 73 Respiratory 17 Rate Blood Pressure 182/64 182/64 178/61 O2 Sat by Pulse 97 Oximetry 11/13/18 11/13/18 06:40 08:24 Temperature 98.0 F Pulse Rate 76 Respiratory Rate Blood Pressure 158/69 182/83 O2 Sat by Pulse 94 Oximetry - General Appearance General appearance: well-developed, appears stated age, other (no distress) EENT: ATNC, PERRL, mucous membranes dry, hearing intact, vision intact Neck: supple Respiratory: Present: Clear to Ascultation Cardiology: regular, S1S2, no murmurs Gastrointestinal: normoactive bowel sounds, no tenderness, no distended Integumentary: no rash, warm and dry Neurologic: no focal deficit, no asterixis, confused, disoriented Musculoskeletal: other (no edema) - Lab 11/11/18 03:59 11/11/18 03:59 Most recent lab results Calcium 8.8 mg/dL (8.4-10.2) 11/11/18 03:59 Phosphorus 3.80 mg/dL (2.5-4.5) 11/08/18 04:13 Magnesium 2.30 mg/dL (1.7-2.3) 11/11/18 13:06 151.2 mg/dL (0.1-20.0) H 11/07/18 03:30 45 mmol/L 11/07/18 03:30 Medications & Allergies - Medications Allergies/Adverse Reactions: Allergies No Known Allergies Allergy (Unverified 10/16/17 21:44) Home Medications: Home Medications Medication Instructions Recorded Confirmed Last Taken Type Divalproex Dr [Depakote Dr] 250 mg PO BID 11/04/18 11/04/18 Unknown History Sertraline [Zoloft] 100 mg PO QDAY 11/04/18 11/04/18 Unknown History Magnesium Hydroxide [Milk of 30 ml PO Q4H PRN oral.liqd 11/13/18 Unknown Rx Magnesia] Morphine Concentrate [MORPHINE 10 mg PO Q4HR PRN #1 oralsyr 11/13/18 Unknown Rx Conc 20 MG/ML ORAL LIQ] Promethazine [Phenergan SUPPOS] 25 mg [place] Q6H PRN supp.rect 11/13/18 Unknown Rx levETIRAcetam [Keppra TAB] 500 mg PO BID tablet 11/13/18 Unknown Rx Active Medications: Generic Name Dose Route Start Last Admin Trade Name Freq PRN Reason Stop Dose Admin Acetaminophen 650 mg 11/04/18 15:13 Tylenol PO Q4H PRN Pain, Mild (1-3) Bisacodyl 10 mg 11/04/18 15:13 Dulcolax [place] QDAY PRN Constipation Divalproex Sodium 250 mg 11/04/18 22:00 11/13/18 09:[address] PO 250 mg BID PRESTON Administration Levetiracetam 500 mg 11/07/18 15:00 11/13/18 09:49 Keppra PO 500 mg BID PRESTON Administration Magnesium Hydroxide 30 ml 11/04/18 15:13 Milk Of Magnesia PO Q4H PRN Constipation Morphine Sulfate 2 mg 11/12/18 09:11 11/13/18 00:26 Morphine IV 2 mg Q3H PRN Administration Pain, Moderate (4-6) Ondansetron HCl 4 mg 11/04/18 15:13 Zofran IV Q8H PRN Nausea And Vomiting Promethazine HCl 25 mg 11/04/18 15:13 Phenergan [place] Q6H PRN Nausea And Vomiting Sodium Chloride 10 ml 11/04/18 15:13 11/11/18 22:49 Sodium Chloride Flush Syringe 10 Ml IV 10 ml PRN PRN Administration LINE FLUSH
== END 2018-11-13 16:00 | disposition hospice, inpatient (51) | DRG 64 ==
LOC: ED 10:36 → 4A 15:13 → 2B-ACE 11-11 10:04
PROVIDERS: ADMIT Internal Medicine; ATTEND Internal Medicine
DX: I63.512 Cerebral infarction due to unspecified occlusion or stenosis of left middle cerebral artery (principal); N17.0 Acute kidney failure with tubular necrosis; G93.41 Metabolic encephalopathy; I13.0 Hypertensive heart and chronic kidney disease with heart failure and stage 1 through stage 4 chronic kidney disease, or unspecified chronic kidney disease; N18.4 Chronic kidney disease, stage 4 (severe); I50.9 Heart failure, unspecified; E11.22 Type 2 diabetes mellitus with diabetic chronic kidney disease; J44.9 Chronic obstructive pulmonary disease, unspecified; F29 Unspecified psychosis not due to a substance or known physiological condition; F03.90 Unspecified dementia, unspecified severity, without behavioral disturbance, psychotic disturbance, mood disturbance, and anxiety; F32.9 Major depressive disorder, single episode, unspecified; F17.210 Nicotine dependence, cigarettes, uncomplicated; I25.10 Atherosclerotic heart disease of native coronary artery without angina pectoris; I16.0 Hypertensive urgency; Z66 Do not resuscitate; R56.9 Unspecified convulsions; D64.9 Anemia, unspecified; E87.5 Hyperkalemia; R32 Unspecified urinary incontinence; Z79.4 Long term (current) use of insulin; Z86.73 Personal history of transient ischemic attack (TIA), and cerebral infarction without residual deficits
CPT/HCPCS: 36415; 70450; 76770; 80048; 80053; 80061; 80076; 81001; 82140; 82550; 82553; 82570; 82805; 82962; 83735; 83970; 84100; 84300; 84484; 85014; 85018; 85025; 85049; 85520; 85610; 85670; 85730; 87116; 93005; 93010; 93306; 93880; 94760; 96374; 96375; 99406; G0378; A9270-GY; J0360; J0610; J1644; J1815; J2060; J2270; J7030; Q0162